=== PATIENT | male | born 1995 | race Caucasian/White ===

== ENCOUNTER 2017-08-31 18:02 | Emergency (ER) | payer MEDICAID, OTHER ==
[~2017-08-31] VITALS: Ht 162.6 cm; Wt 67.0 kg
[2017-08-31 18:10] VITALS: BP 120/75; PULSE 97; RESP 16; TEMP 98.5; O2SAT 98
[2017-08-31 19:18] LABS: BILIRUBIN, URINE NEG (NEG); BLOOD, URINE NEG (NEG); GLUCOSE,URINE NEG (NEG); KETONE, URINE TRACE mg/dL (NEG); MUCUS URINE MANY /lpf (OCC); NITRITE,URINE NEG (NEG); PH, URINE 5.5 (5.0-8.5); SQUAMOUS EPITHELIAL CELL URINE 1 /hpf (0-5); URINE COLOR YELLOW (YELLW/STRAW); URINE LEUKOCYTE ESTERASE NEG (NEG)
[2017-08-31 20:04] VITALS: BP 122/71; PULSE 82; RESP 17; TEMP 98.6; O2SAT 97
[2017-08-31 20:13] LABS: BASOPHIL % 0.4 % (0.0-2.0); EOSINOPHIL % 0.2 % (0.0-4.0); HEMATOCRIT 43.7 % (39.0-51.0); HEMOGLOBIN 15.1 GM/DL (13.0-17.0); LYMPH % 22.8 % (9.0-44.0); LYMPHOCYTE # 2.3 TH/MM3 (1.0-4.8); MEAN CELL VOLUME 94.2 FL (80.0-100.0); MEAN CORPUSCULAR HEMOGLOBIN 32.5 PG (27.0-34.0); MEAN CORPUSCULAR HGB CONC 34.6 % (32.0-36.0); MEAN PLATELET VOLUME 8.4 FL (7.0-11.0); MONO % 7.9 % (0.0-8.0); MONOCYTE # 0.8 TH/MM3 (0-0.9); NEUT % 68.7 % (16.0-70.0); PLATELET COUNT 398 TH/MM3 (150-450); RED BLOOD COUNT 4.64 MIL/MM3 (4.50-5.90); RED CELL DISTRIBUTION WIDTH 13.1 % (11.6-17.2); WHITE BLOOD COUNT 10.1 TH/MM3 (4.0-11.0)
[2017-08-31 20:26] LABS: ALBUMIN 4.2 GM/DL (3.4-5.0); AST (GOT) 36 U/L (15-37); BICARBONATE 25.9 MEQ/L (21.0-32.0); BLOOD UREA NITROGEN 8 MG/DL (7-18); CALCIUM 9.2 MG/DL (8.5-10.1); CHLORIDE 105 MEQ/L (98-107); CREATININE 0.84 MG/DL (0.60-1.30); GLOMERULAR FILTRATION RATE 114 ML/MIN (>89); GLUCOSE,RANDOM 85 MG/DL (74-106); SODIUM (NA) 139 MEQ/L (136-145)
[2017-08-31 20:29] LABS: ALKALINE PHOSPHATASE 92 U/L (45-117); ALT (GPT) 57 U/L (12-78); TOTAL BILIRUBIN ADULT 0.3 MG/DL (0.2-1.0); TOTAL PROTEIN 7.9 GM/DL (6.4-8.2)
--- NOTE | 2017-08-31 20:43 | PD ---
HPI Chief Complaint: Psychiatric Symptoms Time Seen by Provider: 20:20 Travel History International Travel<30 days: No Contact w/Intl Traveler<30days: No Traveled to known affect area: No History of Present Illness HPI 22-year-old male with history of schizophrenia results emergency department for psychiatric evaluation under Bacon act. Patient states that he was hearing voices and they're telling him to kill himself. Patient states he does not want to kill himself. He does report that he is not taking medication at this time. Denies any acute medical needs. Patient has no other symptoms reported this time. PFSH Past Medical History Psychiatric: Yes Social History Alcohol Use: Yes Tobacco Use: Yes Allergies-Medications (Allergen,Severity, Reaction): Coded Allergies: trazodone (Verified Allergy, Unknown, 08/31/17) Review of Systems Except as stated in HPI: all other systems reviewed are Neg Physical Exam Narrative GENERAL: Well-nourished, but seemingly developmentally delayed male patient, lying in bed in no acute distress. SKIN: Focused skin assessment warm/dry. HEAD: Atraumatic. Normocephalic. EYES: Pupils equal and round. No scleral icterus. No injection or drainage. ENT: No nasal bleeding or discharge. Mucous membranes pink and moist. NECK: Trachea midline. No JVD. CARDIOVASCULAR: Regular rate and rhythm. No murmur appreciated. RESPIRATORY: No accessory muscle use. Clear to auscultation. Breath sounds equal bilaterally. GASTROINTESTINAL: Abdomen soft, non-tender, nondistended. Hepatic and splenic margins not palpable. MUSCULOSKELETAL: No obvious deformities. No clubbing. No cyanosis. No edema. NEUROLOGICAL: Awake and alert. No obvious cranial nerve deficits. Motor grossly within normal limits. Normal speech. Data Data Last Documented VS Vital Signs Date Time Temp Pulse Resp B/P (MAP) Pulse Ox O2 Delivery O2 Flow Rate FiO2 08/31/17 22:30 97.2 72 17 106/54 (71) 99 Room Air Orders Orders Complete Blood Count With Diff (08/31/17 18:08) Comprehensive Metabolic Panel (08/31/17 18:08) Urinalysis - C+S If Indicated (08/31/17 18:08) Psych Screen (08/31/17 18:08) Drug Screen, Random Urine (08/31/17 18:08) Alcohol (Ethanol) (08/31/17 18:08) Labs Laboratory Tests Test 08/31/17 18:48 08/31/17 19:21 Urine Color YELLOW Urine Turbidity CLEAR Urine pH 5.5 Urine Specific [place] 1.028 Urine Protein 30 mg/dL Urine Glucose (UA) NEG mg/dL Urine Ketones TRACE mg/dL Urine Occult Blood NEG Urine Nitrite NEG Urine Bilirubin NEG Urine Urobilinogen 2.0 MG/DL Urine Leukocyte Esterase NEG Urine RBC LESS THAN 1 /hpf Urine WBC 1 /hpf Urine Squamous Epithelial Cells 1 /hpf Urine Mucus MANY /lpf Microscopic Urinalysis Comment CULT NOT INDICATED Urine Opiates Screen NEG Urine Barbiturates Screen NEG Urine Amphetamines Screen NEG Urine Benzodiazepines Screen NEG Urine Cocaine Screen NEG Urine Cannabinoids Screen POS White Blood Count 10.1 TH/MM3 Red Blood Count 4.64 MIL/MM3 Hemoglobin 15.1 GM/DL Hematocrit 43.7 % Mean Corpuscular Volume 94.2 FL Mean Corpuscular Hemoglobin 32.5 PG Mean Corpuscular Hemoglobin Concent 34.6 % Red Cell Distribution Width 13.1 % Platelet Count 398 TH/MM3 Mean Platelet Volume 8.4 FL Neutrophils (%) (Auto) 68.7 % Lymphocytes (%) (Auto) 22.8 % Monocytes (%) (Auto) 7.9 % Eosinophils (%) (Auto) 0.2 % Basophils (%) (Auto) 0.4 % Neutrophils # (Auto) 7.0 TH/MM3 Lymphocytes # (Auto) 2.3 TH/MM3 Monocytes # (Auto) 0.8 TH/MM3 Eosinophils # (Auto) 0.0 TH/MM3 Basophils # (Auto) 0.0 TH/MM3 CBC Comment DIFF FINAL Differential Comment Blood Urea Nitrogen 8 MG/DL Creatinine 0.84 MG/DL Random Glucose 85 MG/DL Total Protein 7.9 GM/DL Albumin 4.2 GM/DL Calcium Level 9.2 MG/DL Alkaline Phosphatase 92 U/L Aspartate Amino Transf (AST/SGOT) 36 U/L Alanine Aminotransferase (ALT/SGPT) 57 U/L Total Bilirubin 0.3 MG/DL Sodium Level 139 MEQ/L Potassium Level 3.9 MEQ/L Chloride Level 105 MEQ/L Carbon Dioxide Level 25.9 MEQ/L Anion Gap 8 MEQ/L Estimat Glomerular Filtration Rate 114 ML/MIN Ethyl Alcohol Level LESS THAN 3 MG/DL MDM Medical Decision Making Medical Screen Exam Complete: Yes Emergency Medical Condition: Yes Medical Record Reviewed: Yes Differential Diagnosis Mood disorder versus personality disorder versus adjustment reaction disorder Narrative Course 22-year-old male presents to emergency department under Bacon act for psychiatric evaluation. Patient appears without distress. Vital signs are stable. Laboratory is without acute concern. He is medically cleared to undergo psychiatric screening for further evaluation and disposition. Mental health screening discussed with the patient. Psychiatric screen ordered. Diagnosis Primary Impression: Schizophrenia Qualified Codes: F20.9 - Schizophrenia, unspecified Condition: Stable Jaci Pineda Aug 31, 2017 20:43
[2017-08-31 22:30] VITALS: BP 106/54; PULSE 72; RESP 17; TEMP 97.2; O2SAT 99
[2017-09-01 04:00] VITALS: BP 108/56; PULSE 68; RESP 18; TEMP 98.6; O2SAT 100
[2017-09-01] MEDS ORDERED: NICOTINE 21 MG/24 HR PATCH T-DERMAL ONE (10:45)
[2017-09-01 12:20] VITALS: BP 110/57; PULSE 58; RESP 18; O2SAT 97
[2017-09-01] MEDS ORDERED: PROZ20CA11 PO (13:51)
--- NOTE | 2017-09-01 13:55 | PD ---
History of Present Illness Chief Complaint: Psychiatric Symptoms Time Seen by Provider: 13:45 Travel History International Travel<30 Days: No Contact w/Intl Traveler<30days: No Known affected area: No Legal Status Legal Status: Bacon Act Bacon Act Signed By: Juvenal Rose Bacon Act Comment: 2017 @ 3776 History of Present Illness: 22-year-old male Arleen acted for reports of auditory hallucinations and suicidality. At this time the patient denies any hallucinations and denies any suicidal or homicidal ideation, plan or intent. This physician noted a diagnosis of schizophrenia on his Bacon act, but the patient does not appear to have actual significant objective clinical symptoms of schizophrenia. He does have an obvious speech impediment. He also feels he is transgender. This is not a delusion or psychotic symptoms however. He would like to be back on antidepressant medicine and states he has not been seen by a psychiatrist in over a year. He moved to this area with his mother approximately one year ago. He is verbally dona for safety at this time and he is competent to do so. This physician offered a prescription for Prozac and the patient readily agreed. Informed consent was given. He can follow up on an outpatient basis. PFSH Past Medical History Psychiatric: Yes Psychiatric History Psychiatric History Hx Psychiatric Treatment: DEPRESSION/ ANXIETY, SCHIZOPHRENIA. Patient admits to his history of depressive symptoms and anxiety. He does not demonstrate actual significant objective clinical evidence of schizophrenia at this time History of Inpatient Treatment: No Guns or firearms in home: No Social History Hx Alcohol Use: Yes Hx Tobacco Use: Yes Hx Substance Use: No Substance Use Type: Marijuana Hx of Substance Use Treatment: No Allergies-Medications (Allergen,Severity, Reaction): Coded Allergies: trazodone (Verified Allergy, Unknown, 08/31/17) Reported Meds & Prescriptions Reported Meds & Active Scripts Active Prozac (Fluoxetine HCl) 20 Mg Cap 20 Mg PO DAILY Review of Systems Psychiatric: COMPLAINS OF: Anxiety, Depression Except as stated in HPI: all other systems reviewed are Neg Mental Status Examination Appearance: Appropriate Consciousness: Alert Orientation: x4 Motor Activity: Normal gait Speech: Unremarkable Language: Adequate Fund of Knowledge: Adequate Attention and Concentration: Adequate Memory: Unremarkable Mood: Appropriate Affect: Anxious Thought Process & Associations: Intact Thought Content: Appropriate Hallucination Type: None Delusion Type: None Suicidal Ideation: No Suicidal Plan: No Suicidal Intention: No Homicidal Ideation: No Homicidal Plan: No Homicidal Intention: No Insight: Adequate Judgment: Adequate MDM Medical Decision Making Medical Record Reviewed: Yes Assessment/Plan Patient interviewed at bedside. Electronic medical record reviewed. Case discussed with nurse Danya. Prescription for Prozac given. Bacon act lifted. Patient does not meet criteria for Bacon act or involuntary psychiatric hospitalization. He would like to return home and he is verbally dona for safety. He is competent to do so. Orders Orders Complete Blood Count With Diff (08/31/17 18:08) Comprehensive Metabolic Panel (08/31/17 18:08) Urinalysis - C+S If Indicated (08/31/17 18:08) Psych Screen (08/31/17 18:08) Drug Screen, Random Urine (08/31/17 18:08) Alcohol (Ethanol) (08/31/17 18:08) Diet Regular Basic (09/01/17 Breakfast) Nicotine 21 Mg Patch.24 Hr (Habitrol 21 (09/01/17 10:45) Diet Regular Basic (09/01/17 Lunch) Results Vital Signs Date Time Temp Pulse Resp B/P (MAP) Pulse Ox O2 Delivery O2 Flow Rate FiO2 09/01/17 12:20 58 18 110/57 (74) 97 09/01/17 04:00 98.6 68 18 108/56 (73) 100 Room Air 08/31/17 22:30 97.2 72 17 106/54 (71) 99 Room Air 08/31/17 20:04 98.6 82 17 122/71 (88) 97 Room Air 08/31/17 18:10 98.5 97 16 120/75 (90) 98 Laboratory Tests Test 08/31/17 18:48 08/31/17 19:21 Urine Color YELLOW Urine Turbidity CLEAR Urine pH 5.5 Urine Specific [place] 1.028 Urine Protein 30 Urine Glucose (UA) NEG Urine Ketones TRACE Urine Occult Blood NEG Urine Nitrite NEG Urine Bilirubin NEG Urine Urobilinogen 2.0 Urine Leukocyte Esterase NEG Urine RBC LESS THAN 1 Urine WBC 1 Urine Squamous Epithelial Cells 1 Urine Mucus MANY Microscopic Urinalysis Comment CULT NOT INDICATED Urine Opiates Screen NEG Urine Barbiturates Screen NEG Urine Amphetamines Screen NEG Urine Benzodiazepines Screen NEG Urine Cocaine Screen NEG Urine Cannabinoids Screen POS White Blood Count 10.1 Red Blood Count 4.64 Hemoglobin 15.1 Hematocrit 43.7 Mean Corpuscular Volume 94.2 Mean Corpuscular Hemoglobin 32.5 Mean Corpuscular Hemoglobin Concent 34.6 Red Cell Distribution Width 13.1 Platelet Count 398 Mean Platelet Volume 8.4 Neutrophils (%) (Auto) 68.7 Lymphocytes (%) (Auto) 22.8 Monocytes (%) (Auto) 7.9 Eosinophils (%) (Auto) 0.2 Basophils (%) (Auto) 0.4 Neutrophils # (Auto) 7.0 Lymphocytes # (Auto) 2.3 Monocytes # (Auto) 0.8 Eosinophils # (Auto) 0.0 Basophils # (Auto) 0.0 CBC Comment DIFF FINAL Differential Comment Blood Urea Nitrogen 8 Creatinine 0.84 Random Glucose 85 Total Protein 7.9 Albumin 4.2 Calcium Level 9.2 Alkaline Phosphatase 92 Aspartate Amino Transf (AST/SGOT) 36 Alanine Aminotransferase (ALT/SGPT) 57 Total Bilirubin 0.3 Sodium Level 139 Potassium Level 3.9 Chloride Level 105 Carbon Dioxide Level 25.9 Anion Gap 8 Estimat Glomerular Filtration Rate 114 Ethyl Alcohol Level LESS THAN 3 Diagnosis Primary Impression: Adjustment disorder with anxiety Prescriptions Fluoxetine (Prozac) 20 Mg Cap 20 MG PO DAILY, #30 CAP 0 Refills Prov: Inocente Lackey MD 09/01/17 Condition: Stable Inocente Lackey MD Sep 01, 2017 13:55
--- NOTE | 2017-09-01 14:42 | PD ---
Physical Exam Time Seen by Provider: 14:[address] Lackey has evaluated the patient, lifted Bacon act and cleared the patient for discharge. Data Data Last Documented VS Vital Signs Date Time Temp Pulse Resp B/P (MAP) Pulse Ox O2 Delivery O2 Flow Rate FiO2 09/01/17 12:20 58 18 110/57 (74) 97 09/01/17 04:00 98.6 Room Air Orders Orders Complete Blood Count With Diff (08/31/17 18:08) Comprehensive Metabolic Panel (08/31/17 18:08) Urinalysis - C+S If Indicated (08/31/17 18:08) Psych Screen (08/31/17 18:08) Drug Screen, Random Urine (08/31/17 18:08) Alcohol (Ethanol) (08/31/17 18:08) Diet Regular Basic (09/01/17 Breakfast) Nicotine 21 Mg Patch.24 Hr (Habitrol 21 (09/01/17 10:45) Diet Regular Basic (09/01/17 Lunch) Labs Laboratory Tests Test 08/31/17 18:48 08/31/17 19:21 Urine Color YELLOW Urine Turbidity CLEAR Urine pH 5.5 Urine Specific [place] 1.028 Urine Protein 30 mg/dL Urine Glucose (UA) NEG mg/dL Urine Ketones TRACE mg/dL Urine Occult Blood NEG Urine Nitrite NEG Urine Bilirubin NEG Urine Urobilinogen 2.0 MG/DL Urine Leukocyte Esterase NEG Urine RBC LESS THAN 1 /hpf Urine WBC 1 /hpf Urine Squamous Epithelial Cells 1 /hpf Urine Mucus MANY /lpf Microscopic Urinalysis Comment CULT NOT INDICATED Urine Opiates Screen NEG Urine Barbiturates Screen NEG Urine Amphetamines Screen NEG Urine Benzodiazepines Screen NEG Urine Cocaine Screen NEG Urine Cannabinoids Screen POS White Blood Count 10.1 TH/MM3 Red Blood Count 4.64 MIL/MM3 Hemoglobin 15.1 GM/DL Hematocrit 43.7 % Mean Corpuscular Volume 94.2 FL Mean Corpuscular Hemoglobin 32.5 PG Mean Corpuscular Hemoglobin Concent 34.6 % Red Cell Distribution Width 13.1 % Platelet Count 398 TH/MM3 Mean Platelet Volume 8.4 FL Neutrophils (%) (Auto) 68.7 % Lymphocytes (%) (Auto) 22.8 % Monocytes (%) (Auto) 7.9 % Eosinophils (%) (Auto) 0.2 % Basophils (%) (Auto) 0.4 % Neutrophils # (Auto) 7.0 TH/MM3 Lymphocytes # (Auto) 2.3 TH/MM3 Monocytes # (Auto) 0.8 TH/MM3 Eosinophils # (Auto) 0.0 TH/MM3 Basophils # (Auto) 0.0 TH/MM3 CBC Comment DIFF FINAL Differential Comment Blood Urea Nitrogen 8 MG/DL Creatinine 0.84 MG/DL Random Glucose 85 MG/DL Total Protein 7.9 GM/DL Albumin 4.2 GM/DL Calcium Level 9.2 MG/DL Alkaline Phosphatase 92 U/L Aspartate Amino Transf (AST/SGOT) 36 U/L Alanine Aminotransferase (ALT/SGPT) 57 U/L Total Bilirubin 0.3 MG/DL Sodium Level 139 MEQ/L Potassium Level 3.9 MEQ/L Chloride Level 105 MEQ/L Carbon Dioxide Level 25.9 MEQ/L Anion Gap 8 MEQ/L Estimat Glomerular Filtration Rate 114 ML/MIN Ethyl Alcohol Level LESS THAN 3 MG/DL MDM Supervised Visit with RIGO: No Narrative Course Dr. Lackey has evaluated the patient, lifted [facility] and cleared the patient for discharge. Patient contracts safety. Denies suicidal or homicidal ideations. [facility]. Has friends and family for support. Patient was medically cleared by alternate provider prior to psych screening. Patient has been evaluated by psychiatry and and is now cleared for discharge. Diagnosis Primary Impression: Adjustment disorder with anxiety Referrals: KYLEE (Out patient) [facility] Primary Care Physician Psychiatrist Rachele PICHARDO Behavioral Patient Instructions: Anxiety (ED), General Instructions Additional Instruction: Contract safety to your self and others Follow-up with psychiatry Follow-up with primary care provider Follow-up with Bernardino Billingsley Return to the emergency department immediately with worsening of symptoms Med/Other Pt SpecificInfo: Prescription(s) given Scripts Fluoxetine (Prozac) 20 Mg Cap 20 MG PO DAILY, #30 CAP 0 Refills Prov: Inocente Lackey MD 09/01/17 Disposition: 01 DISCHARGE HOME Condition: Stable KandaceWilfred rogerssue NOVOA Sep 01, 2017 14:42
== END 2017-09-01 15:45 | disposition home or self-care (01) ==
LOC: NED 18:02 → NEPJ 09-01 15:45
DX: F43.22 Adjustment disorder with anxiety (principal); F20.9 Schizophrenia, unspecified; Z72.0 Tobacco use; Z79.899 Other long term (current) drug therapy
CPT/HCPCS: 80053; 80307; 81001; 85025; 99284

== ENCOUNTER 2017-09-03 00:09 | Inpatient (IN) | payer MEDICAID, OTHER ==
[~2017-09-03] VITALS: Ht 165.1 cm; Wt 58.4 kg
[~2017-09-03 00:09] MED LIST: PROZ20CA11 PO
--- NOTE | 2017-09-03 00:44 | PD ---
HPI Chief Complaint: ba Time Seen by Provider: 00:43 Travel History International Travel<30 days: No Contact w/Intl Traveler<30days: No Traveled to known affect area: No History of Present Illness HPI 22-year-old male presents to emergency department under [employer] act for psychiatric evaluation. Patient was seen and evaluated here 2 days ago, medically clear, and has been since disposition. Patient states he has not been taking his medication and is not followed up. He has been having worsening auditory hallucinations, telling him to hurt himself. Patient states he does not want hurt himself that's why he is here. He has no acute medical needs. PFSH Past Medical History Bipolar Disorder: Yes Psychiatric: Yes Social History Alcohol Use: Yes Tobacco Use: Yes Substance Use: No Allergies-Medications (Allergen,Severity, Reaction): Coded Allergies: trazodone (Verified Allergy, Unknown, 09/03/17) Reported Meds & Prescriptions Reported Meds & Active Scripts Active Prozac (Fluoxetine HCl) 20 Mg Cap 20 Mg PO DAILY Review of Systems Except as stated in HPI: all other systems reviewed are Neg Physical Exam Narrative GENERAL: Thin male patient, ambulatory and in no acute distress. SKIN: Focused skin assessment warm/dry. HEAD: Atraumatic. Normocephalic. EYES: Pupils equal and round. No scleral icterus. No injection or drainage. ENT: No nasal bleeding or discharge. Mucous membranes pink and moist. NECK: Trachea midline. No JVD. CARDIOVASCULAR: Regular rate and rhythm. No murmur appreciated. RESPIRATORY: No accessory muscle use. Clear to auscultation. Breath sounds equal bilaterally. GASTROINTESTINAL: Abdomen soft, non-tender, nondistended. Hepatic and splenic margins not palpable. MUSCULOSKELETAL: No obvious deformities. No clubbing. No cyanosis. No edema. NEUROLOGICAL: Awake and alert. No obvious cranial nerve deficits. Motor grossly within normal limits. . Data Data Orders Orders Psych Screen (09/03/17 01:52) Diet Regular Basic (09/03/17 Breakfast) [facility] Medical Decision Making Medical Screen Exam Complete: Yes Emergency Medical Condition: Yes Medical Record Reviewed: Yes Differential Diagnosis Mood disorder versus personality disorder versus adjustment reaction disorder Narrative Course 22-year-old male presents emergency department under [employer] act for psychiatric evaluation. Patient appears without distress. He reports worsening auditory hallucinations and not taking his medication. Patient does report suicidal thoughts but not wanting to hurt himself. Lab work will not be repeated as it was just completed within this week. He is medically cleared at this time to undergo psychiatric screening for further evaluation and disposition. Mental health screening discussed with the patient. Psychiatric screen ordered. Diagnosis Primary Impression: Mood disorder Condition: Stable EdwinJaci BRIGHT Sep 03, 2017 00:44
[2017-09-03 03:18] VITALS: BP 132/69; PULSE 78; RESP 16; O2SAT 95
[2017-09-03 10:31] VITALS: BP 90/52; PULSE 76; RESP 18; O2SAT 98
[2017-09-03] MEDS ORDERED: ACETAMINOPHEN 325 MG TAB PO PRN (17:30)
[2017-09-03] MEDS ORDERED: diphenhydrAMINE HCL 50 MG/ML VIAL IM PRN (17:30)
[2017-09-03] MEDS ORDERED: MAGNESIUM HYDROXIDE SUSP 30 ML CUP PO PRN (17:30)
[2017-09-03] MEDS ORDERED: traZODone HCL 50 MG TAB PO PRN (17:30)
--- NOTE | 2017-09-03 17:37 | HHI.HP ---
Provisional Diagnosis Admission Date [place]. Adjustment disorder with depressed mood Certification of Person's Competence To Provide Express and Informed Consent I have personally examined Bertin Worthy , a person being served at [facility] onSep 03, 2017 17:25. Express and informed consent means consent voluntarily given in writing, by a competent person, after sufficient explanation and disclosure of the subject matter involved to enable the person to make a knowing and willful decision without any element of force, fraud, deceit, duress, or other form of constraint or coercion. This person is 18 years of age or older, is not now known to be incompetent to consent to treatment with a guardian advocate, and does not have a health care surrogate or proxy currently making medical treatment decisions. I have found this person to be one of the following: [X] Competent to provide express and informed consent, as defined above, for voluntary admission to this facility and is competent to provide express and informed consent for treatment. He/she has the consistent capacity to make well reasoned, willful, and knowing decisions concerning his or her medical or mental health treatment. The person fully and consistently understands the purpose of the admission for examination/placement and is fully capable of personally exercising all rights assured [place] Incompetent to provide express and informed consent to voluntary admission, and this is incompetent to provide express and informed consent to treatment. The person must be transferred to involuntary status and a petition for a guardian advocate filed with the Circuit Court. [] Refusing to provide express and informed consent to voluntary admission but is competent to provide express and informed consent for treatment. The person must be discharged or transferred to involuntary status. Form shall be completed within 24 hours of a person's arrival at the receiving facility and filed in the clinical record of each person: 1. Admitted on a voluntary basis 2. Permitted to provide express and informed consent to his/her own treatment 3. Allowed to transfer from involuntary to voluntary status 4. Prior to permitting a person to consent to his or her own treatment after having been previously found incompetent to consent to treatment. History of Present Illness Capacity: Has Capacity HPI 22-year-old male presents under a Bacon act with reports of auditory hallucinations of a command nature, telling him to harm himself. Patient was evaluated by this physician several days ago. He believes he is transgender and has grown his hair long and wants to have hormone therapy and surgery to become a female. He has a significant speech impediment and appears to possibly have a genetic issue underlying his appearance. He has recently returned to this area, where his mother resides. While he complains of command auditory hallucinations, telling him to harm himself, he does not have the remainder of symptoms associated with schizophrenia, schizoaffective disorder, bipolar disorder, etc. The patient's affect is not consistent with schizophrenia and he does not demonstrate poor relatedness. He does not appear to be responding to internal stimuli. Additionally, he does not have a sustained change in mood, which would be associated with bipolar disorder. He does state that his mother will not accept him back into her home as long as he is complaining of auditory hallucinations. The patient was given a prescription for Prozac last time and told he could fill it at [facility] for $4. He has not filled the prescription. On the other hand, the patient describes multiple symptoms of depression subjectively, including depressed mood, anhedonia, social withdrawal, feelings of hopelessness and helplessness, diminished energy, decreased self-esteem, and suicidal ideation. As this is the second time he has returned to this facility for psychiatric evaluation and treatment, this physician does feel he is at high risk for harming himself. Review of Systems Psychiatric: COMPLAINS OF: Mood changes, Suicidal Ideation Except as stated in HPI: all other systems reviewed are Neg Past Psych History Psychological trauma history Unknown (denied). Violence risk - others (6 mos) Minimal to moderate Violence risk - self (6 mos) High Substance Abuse History Drugs/Alcohol past 12 months Denied but the patient was positive for cannabinoids at the time of his last evaluation, August 31, 2017. Past Family Social History Coded Allergies: trazodone (Verified Allergy, Unknown, 09/03/17) Active Scripts Fluoxetine (Prozac) 20 Mg Cap, 20 MG PO DAILY, #30 CAP 0 Refills Prov:Inocente Lackey MD 09/01/17 Current Medications Medications (Trade) Dose Ordered Sig/Darrian Route Start Time Stop Time Status Last Admin (Benadryl) 50 mg Q6H PRN PO 09/03/17 17:30 UNV (Benadryl Inj) 50 mg Q6H PRN IM 09/03/17 17:30 UNV (Tylenol) 650 mg Q4H PRN PO 09/03/17 17:30 UNV (Milk Of Magnesia Liq) 30 ml DAILY PRN PO 09/03/17 17:30 UNV (Mag-Al Plus Susp Liq) 30 ml Q6H PRN PO 09/03/17 17:30 UNV (Desyrel) 50 mg HS PRN PO 09/03/17 17:30 UNV (Atarax) 50 mg Q6H PRN PO 09/03/17 17:30 UNV (PROzac) 20 mg DAILY PO 09/04/17 09:00 UNV Family Psych History Positive for mood disorders. Social History Patient currently homeless. He is not employed. He has no financial backup. He has minimal to no family support. He admits upon further questioning that he does use marijuana at least intermittently. Patient's Strengths (min. 2) Young and has access to healthcare. Physical Exam GENERAL: SKIN: Warm and dry. HEAD: Normocephalic. EYES: No scleral icterus. No injection or drainage. NECK: Supple, trachea midline. No JVD or lymphadenopathy. CARDIOVASCULAR: Regular rate and rhythm without murmurs, gallops, or rubs. RESPIRATORY: Breath sounds equal bilaterally. No accessory muscle use. GASTROINTESTINAL: Abdomen soft, non-tender, nondistended. MUSCULOSKELETAL: No cyanosis, or edema. BACK: Nontender without obvious deformity. No CVA tenderness. Vital Signs Vital Signs Date Time Temp Pulse Resp B/P (MAP) Pulse Ox O2 Delivery O2 Flow Rate FiO2 09/03/17 10:31 76 18 90/52 (65) 98 Room Air Mental Status Examination Appearance: Disheveled Consciousness: Alert Orientation: x4 Motor Activity: Normal gait Speech: Speech impediment Language: Adequate Fund of Knowledge: Adequate Attention and Concentration: Adequate Memory: Unremarkable Mood: Anxious Affect: Anxious Thought Process & Associations: Intact Thought Content: Hallucinations Hallucination Type: Auditory Delusion Type: None Suicidal Ideation: Yes Suicidal Plan: No Suicidal Intention: No Homicidal Ideation: No Homicidal Plan: No Homicidal Intention: No Insight: Fair Judgment: Impulsive Assessment & Plan Problem List: (1) Adjustment disorder with depressed mood ICD Codes: F43.21 - Adjustment disorder with depressed mood Assessment & Plan Estimated LOS: days. 22-year-old male presents under a Bacon act with complaints of auditory hallucinations telling him to harm himself. Patient's mother will not accept him into her home as long as he complains of auditory hallucinations, as reported by the patient. This physician feels the patient is at high risk for self-harm due to the lack of his mother's support, his young age, his significant speech impediment, his financial distress, and his homelessness. He is therefore being admitted for further evaluation and treatment. This physician has ordered a CBC and comprehensive metabolic panel to determine if any infectious process or metabolic process is causing or contributing to the patient's dysphoria. Additionally, this physician has ordered thyroid stimulating hormone level, vitamin B-12 level and vitamin D level, to determine if deficiencies in these areas might be causing or contributing to his mood disorder. This physician is continuing the patient's Prozac for his depressive complaints. The treating physician may decide to provide antipsychotic medication for his complaints of auditory hallucinations. Therefore, this physician has also ordered an EKG to determine the patient's cardiac conduction status which might be adversely affected by multiple psychotropic medicines. This physician spoke to the patient's nurse, Alisha, regarding the patient's recent behavior. Finally, case management will also be involved to assist with information gathering and disposition planning. Inocente Lackey MD Sep 03, 2017 17:37
[2017-09-03 20:05] VITALS: BP 112/69; PULSE 65; RESP 20; TEMP 97.9; O2SAT 98
[2017-09-03] MEDS: diphenhydrAMINE HCL 50 MG CAP PO PRN (21:50)
[2017-09-04 05:49] VITALS: BP 102/51; PULSE 85; RESP 18; TEMP 97.8; O2SAT 98
[2017-09-04] MEDS: FLUoxetine HCL 20 MG CAP PO SCH (08:17)
[2017-09-04 09:19] LABS: AUTOMATED NEUTROPHIL # 3.2 TH/MM3 (1.8-7.7); BASOPHIL # 0.1 TH/MM3 (0-0.2); BASOPHIL % 0.8 % (0.0-2.0); EOSINOPHIL # 0.1 TH/MM3 (0-0.4); HEMATOCRIT 43.6 % (39.0-51.0); HEMOGLOBIN 15.2 GM/DL (13.0-17.0); LYMPH % 46.6 % (9.0-44.0); LYMPHOCYTE # 3.5 TH/MM3 (1.0-4.8); MEAN CELL VOLUME 94.8 FL (80.0-100.0); MEAN CORPUSCULAR HGB CONC 34.8 % (32.0-36.0); MEAN PLATELET VOLUME 9.2 FL (7.0-11.0); MONO % 8.5 % (0.0-8.0); MONOCYTE # 0.6 TH/MM3 (0-0.9); NEUT % 43.1 % (16.0-70.0); PLATELET COUNT 398 TH/MM3 (150-450); RED CELL DISTRIBUTION WIDTH 13.1 % (11.6-17.2); WHITE BLOOD COUNT 7.4 TH/MM3 (4.0-11.0)
[2017-09-04 09:46] LABS: AST (GOT) 21 U/L (15-37); BICARBONATE 24.7 MEQ/L (21.0-32.0); BLOOD UREA NITROGEN 13 MG/DL (7-18); CALCIUM 9.3 MG/DL (8.5-10.1); CHLORIDE 103 MEQ/L (98-107); GLOMERULAR FILTRATION RATE 93 ML/MIN (>89); GLUCOSE,RANDOM 120 MG/DL (74-106); SODIUM (NA) 137 MEQ/L (136-145)
[2017-09-04 09:47] LABS: CHOLESTEROL 154 MG/DL (120-200); TRIGLYCERIDES 95 MG/DL (42-150)
[2017-09-04 10:19] LABS: ALKALINE PHOSPHATASE 85 U/L (45-117); ALT (GPT) 48 U/L (12-78); CHOLESTEROL/ HDL RATIO 4.42 RATIO; HDL CHOLESTEROL 34.8 MG/DL (40.0-60.0); LDL CHOLESTEROL 100 MG/DL (0-99); TOTAL BILIRUBIN ADULT 0.4 MG/DL (0.2-1.0); TOTAL PROTEIN 7.5 GM/DL (6.4-8.2)
--- NOTE | 2017-09-04 14:02 | EKG ---
Date Performed: 09/04/2017 Time Performed: 09:06:39 PTAGE: 22 years EKG: SINUS BRADYCARDIA WITH SINUS ARRHYTHMIA BORDERLINE ECG NO PREVIOUS TRACING DOCTOR: Rudy Carpenter Interpretating Date/Time 09/04/2017 14:00:53
--- NOTE | 2017-09-04 14:08 | HHI.PYPN ---
Subjective Chief Complaint: Auditory hallucinations Remarks Patient seen and examined with nurse. Chart reviewed. Case discussed with nursing staff and in treatment team. Reviewing the chart, I note patient was seen in consultation by Dr. Lackey on 09/01 in the ED. Patient was discharged with a script for Prozac, which he apparently did not fill. Patient returned to the ED yesterday under a Bacon Act and was admitted to the unit by Dr. Lackey. On my examination today, patient complains of deprecatory and command auditory hallucinations to self-injure for several months. Patient complains of some low mood and anxiety. Patient denies any SI/HI at this time. Patient denies side effects from medications. Patient has no physical complaints. Patient would like to focus treatment chiefly on the voices. Review of Systems Except as stated in HPI: all other systems reviewed are Neg Mental Status Examination Appearance: Disheveled, Other (maintaining basic hygiene) Consciousness: Alert Orientation: x4 Motor Activity: Normal gait Speech: Speech impediment Language: Adequate Fund of Knowledge: Adequate Attention and Concentration: Adequate Memory: Unremarkable Mood: Sad, Anxious Affect: Blunt Thought Process & Associations: Intact, Logical, Linear Thought Content: Hallucinations Hallucination Type: Auditory (complains of deprecatory and CAH as noted above but does not appear internally stimulated.) Delusion Type: None Suicidal Ideation: No Suicidal Plan: No Suicidal Intention: No Homicidal Ideation: No Homicidal Plan: No Homicidal Intention: No Insight: Fair Judgment: Impulsive Results Labs Item Value Date Time White Blood Count 7.4 TH/MM3 09/04/17 0810 Hemoglobin 15.2 GM/DL 09/04/17 0810 Platelet Count 398 TH/MM3 09/04/17 0810 Sodium Level 137 MEQ/L 09/04/17 0810 Potassium Level 3.6 MEQ/L 09/04/17 0810 Chloride Level 103 MEQ/L 09/04/17 0810 Carbon Dioxide Level 24.7 MEQ/L 09/04/17 0810 Anion Gap 9 MEQ/L 09/04/17 0810 Blood Urea Nitrogen 13 MG/DL 09/04/17 0810 Creatinine 1.00 MG/DL 09/04/17 0810 Estimat Glomerular Filtration Rate 93 ML/MIN 09/04/17 0810 Random Glucose 120 MG/DL H 09/04/17 0810 Aspartate Amino Transf (AST/SGOT) 21 U/L 09/04/17 0810 Alanine Aminotransferase (ALT/SGPT) 48 U/L 09/04/17 0810 Alkaline Phosphatase 85 U/L 09/04/17 0810 Vitamin B12 Level 460 PG/ML 09/04/17 0810 25-Hydroxy Vitamin D Total 37.0 ng/ML 09/04/17 0810 Thyroid Stimulating Hormone 3rd Gen 0.405 uIU/ML 09/04/17 0810 Labs reviewed. UTox on 08/31 was positive for cannabinoids. EKG read as sinus bradycardia with QTcH 396ms, not prolonged. Vitals/IOs Vital Signs Date Time Temp Pulse Resp B/P (MAP) Pulse Ox O2 Delivery O2 Flow Rate FiO2 09/04/17 05:49 97.8 85 18 102/51 (68) 98 09/03/17 10:31 Room Air Assessment & Plan Problem List: (1) Adjustment disorder with mixed anxiety and depressed mood ICD Codes: F43.23 - Adjustment disorder with mixed anxiety and depressed mood (2) Auditory hallucinations ICD Codes: R44.0 - Auditory hallucinations (3) Use of cannabis ICD Codes: F12.90 - Cannabis use, unspecified, uncomplicated Assessment & Plan Ddx for presenting AH includes but is not limited to: primary psychotic illness (although as pointed out by Dr. Lackey, patient does not have associated symptoms one might expect for such an illness), mood disorder with psychotic features (although mood symptoms do not seem as severe as would usually be seen in this case), drug-induced psychotic symptoms, symptom exaggeration although secondary gain is unclear. Psychosis due to GMC seems less likely, and there are no lab findings to suggest an obvious cause. As patient would like to make AH main focus of treatment, we discuss R/B/A of trial of Zyprexa, and patient is agreeable to starting this agent. I will initiate this at low dose, Zyprexa 2.5mg qHS, as BP is already on the low side and I do not want to cause excessive hypotension. We can titrate to effect so long as this agent is well tolerated. I will continue the Prozac for mood/anxiety. Continue to monitor on an inpatient unit. Continue other medications and care as ordered. Patient may sign voluntary and consent for medications. Justification for Cont. Inpt. Monitoring for impairment and safety. Medication changes. Risk for decompensation in less restrictive environment. Discharge Planning Pending psychiatric stabilization. Case discussed with counselor who will endeavor to obtain collateral information. Request HC Surrog/Guard Advoc?: No Tristen Lindsey MD Sep 04, 2017 14:08
[2017-09-04 15:43] LABS: HEMOGLOBIN A1C 5.5 % (4.3-6.0)
[2017-09-04 18:00] VITALS: BP 106/60; PULSE 56; RESP 18; TEMP 98.7; O2SAT 98
[2017-09-04] MEDS: hydrOXYzine HCL 50 MG TAB PO PRN (20:05)
[2017-09-04] MEDS ORDERED: OLANZapine 2.5 MG TAB PO SCH (21:00)
[2017-09-05 05:44] VITALS: BP 108/56; PULSE 65; RESP 18; TEMP 97.2
[2017-09-05] MEDS: hydrOXYzine HCL 50 MG TAB PO PRN ×3 (08:55→20:33)
[2017-09-05] MEDS: FLUoxetine HCL 20 MG CAP PO SCH (08:55)
--- NOTE | 2017-09-05 11:55 | HHI.PYPN ---
Subjective Chief Complaint: Auditory hallucinations Remarks Patient seen and examined with counselor. Chart reviewed. Case discussed with nursing staff and with counselor. On my examination today, the patient reports that auditory hallucinations are decreasing in intensity with Zyprexa. Patient is tolerating this agent well without side effects. No SI or HI. Continues to complain of some anxiety. Sleeping and eating well. No side effects from medications. No physical complaints. Agreeable to titration of Zyprexa today. Review of Systems Except as stated in HPI: all other systems reviewed are Neg Mental Status Examination Appearance: Appropriate Consciousness: Alert Orientation: x4 Motor Activity: Other (no motoric abnormalities noted) Speech: Speech impediment Language: Adequate Fund of Knowledge: Adequate Attention and Concentration: Adequate Memory: Unremarkable Mood: Anxious Affect: Blunt Thought Process & Associations: Intact, Logical, Linear Thought Content: Hallucinations Hallucination Type: Auditory (decreasing in intensity) Delusion Type: None Suicidal Ideation: No Suicidal Plan: No Suicidal Intention: No Homicidal Ideation: No Homicidal Plan: No Homicidal Intention: No Insight: Fair Judgment: Impulsive Results Labs Labs reviewed. Vitals/IOs Vital Signs Date Time Temp Pulse Resp B/P (MAP) Pulse Ox O2 Delivery O2 Flow Rate FiO2 09/05/17 05:44 97.2 65 18 108/56 (73) 09/04/17 18:00 98 09/03/17 10:31 Room Air Assessment & Plan Problem List: (1) Adjustment disorder with mixed anxiety and depressed mood ICD Codes: F43.23 - Adjustment disorder with mixed anxiety and depressed mood (2) Auditory hallucinations ICD Codes: R44.0 - Auditory hallucinations (3) Use of cannabis ICD Codes: F12.90 - Cannabis use, unspecified, uncomplicated Assessment & Plan Titrate Zyprexa to 5 mg at bedtime to target residual auditory hallucinations. Continue Prozac as ordered for mood/anxiety. Continue to monitor on the inpatient unit. Continue other medications and care as ordered. Justification for Cont. Inpt. Medication changes. Auditory hallucinations. Risk for decompensation and less restrictive environment. Discharge Planning Pending psychiatric stabilization Request HC Surrog/Guard Advoc?: No Tristen Lindsey MD Sep 05, 2017 11:55
[2017-09-05] MEDS: NICOTINE 21 MG/24 HR PATCH T-DERMAL SCH (15:00)
[2017-09-05 16:49] VITALS: BP 120/73; PULSE 67; RESP 18; TEMP 97.9; O2SAT 100
[2017-09-05] MEDS: diphenhydrAMINE HCL 50 MG CAP PO PRN (20:33)
[2017-09-05] MEDS ORDERED: OLANZapine 2.5 MG TAB PO SCH (21:00)
[2017-09-06 06:04] VITALS: BP 114/55; PULSE 65; RESP 18; TEMP 97.6; O2SAT 97
[2017-09-06] MEDS: FLUoxetine HCL 20 MG CAP PO SCH (08:31)
[2017-09-06] MEDS: hydrOXYzine HCL 50 MG TAB PO PRN ×2 (08:31→17:15)
[2017-09-06] MEDS: NICOTINE 21 MG/24 HR PATCH T-DERMAL SCH (08:31)
[2017-09-06] MEDS: REMOVE OLD PATCH T-DERMAL SCH (08:34)
--- NOTE | 2017-09-06 14:58 | HHI.PYPN ---
Subjective Chief Complaint: Auditory hallucinations Remarks Patient seen in coverage for Dr. Lindsey. Patient seen in his room with nurse Ariana, chart reviewed, patient compliant medications. Patient vigilant guarded distracted acknowledging auditory hallucinations of a command nature. Telling him to harm himself will increase Zyprexa to 5 mg a.m. 10 mg at bedtime Review of Systems Constitutional: DENIES: Diaphoretic episodes, Fatigue, Fever, Weight gain, Weight loss, Chills, Dizziness, Change in appetite, Night Sweats Endocrine: DENIES: Heat/cold intolerance, Polydipsia, Polyuria, Polyphagia Eyes: DENIES: Blurred vision, Diplopia, Eye inflammation, Eye pain, Vision loss , Photosensitivity, Double Vision Ears, nose, mouth, throat: DENIES: Tinnitus, Hearing loss, Vertigo, Nasal discharge, Oral lesions, Throat pain, Hoarseness, Ear Pain, Running Nose, Epistaxis, Sinus Pain, Toothache, Odynophagia Respiratory: DENIES: Apneas, Cough, Snoring, Wheezing, Hemoptysis, Sputum production, Shortness of breath Cardiovascular: DENIES: Chest pain, Palpitations, Syncope, Dyspnea on Exertion , PND, Lower Extremity Edema, Orthopnea, Claudication Gastrointestinal: DENIES: Abdominal pain, Black stools, Bloody stools, Constipation, Diarrhea, Nausea, Vomiting, Difficulty Swallowing, Anorexia Genitourinary: DENIES: Sexual dysfunction, Urinary frequency, Urinary incontinence, Urgency, Hematuria, Dysuria, Nocturia, Penile Discharge, Testicular Pain, Testicular Swelling Musculoskeletal: DENIES: Joint pain, Muscle aches, Stiffness, Joint Swelling, Back pain, Neck pain Integumentary: DENIES: Abnormal pigmentation, Nail changes, Pruritus, Rash Hematologic/lymphatic: DENIES: Bruising, Lymphadenopathy Immunologic/allergic: DENIES: Eczema, Urticaria Neurologic: DENIES: Abnormal gait, Headache, Localized weakness, Paresthesias, Seizures, Speech Problems, Tremor, Poor Balance Psychiatric: COMPLAINS OF: Anxiety, Depression, Hallucinations Mental Status Examination Appearance: Appropriate Consciousness: Alert Orientation: x4 Motor Activity: Other (no motoric abnormalities noted) Speech: Speech impediment Language: Adequate Fund of Knowledge: Adequate Attention and Concentration: Adequate Memory: Unremarkable Mood: Anxious Affect: Blunt Thought Process & Associations: Intact, Logical, Linear Thought Content: Hallucinations Hallucination Type: Auditory (decreasing in intensity) Delusion Type: None Suicidal Ideation: No Suicidal Plan: No Suicidal Intention: No Homicidal Ideation: No Homicidal Plan: No Homicidal Intention: No Insight: Fair Judgment: Impulsive Results Labs Test 09/06/17 08:10 Urine Opiates Screen NEG Urine Barbiturates Screen NEG Urine Amphetamines Screen NEG Urine Benzodiazepines Screen NEG Urine Cocaine Screen NEG Urine Cannabinoids Screen POS Vitals/IOs Vital Signs Date Time Temp Pulse Resp B/P (MAP) Pulse Ox O2 Delivery O2 Flow Rate FiO2 09/06/17 06:04 97.6 65 18 114/55 (74) 97 09/03/17 10:31 Room Air Assessment & Plan Problem List: (1) Adjustment disorder with mixed anxiety and depressed mood ICD Codes: F43.23 - Adjustment disorder with mixed anxiety and depressed mood (2) Auditory hallucinations ICD Codes: R44.0 - Auditory hallucinations (3) Use of cannabis ICD Codes: F12.90 - Cannabis use, unspecified, uncomplicated Assessment & Plan Estimated LOS: days patient continues depressed and psychotic with command auditory hallucinations. Please see medication adjustment above Justification for Cont. Inpt. At this time patient will decompensate and placed in a lower level of care Discharge Planning Possibly return to family home Request HC Surrog/Guard Advoc?: No Casey Guerrero MD Sep 06, 2017 14:58
[2017-09-06 17:55] VITALS: BP 104/58; PULSE 83; RESP 18; TEMP 96.8; O2SAT 98
[2017-09-06] MEDS ORDERED: OLANZapine 10 MG TAB PO SCH (21:00)
[2017-09-06] MEDS: diphenhydrAMINE HCL 50 MG CAP PO PRN (21:02)
[2017-09-07 05:41] VITALS: BP 108/58; PULSE 68; RESP 18; TEMP 97.8; O2SAT 97
[2017-09-07] MEDS: FLUoxetine HCL 20 MG CAP PO SCH (07:55)
[2017-09-07] MEDS: NICOTINE 21 MG/24 HR PATCH T-DERMAL SCH (07:56)
[2017-09-07] MEDS: hydrOXYzine HCL 50 MG TAB PO PRN ×3 (08:22→23:52)
[2017-09-07] MEDS: REMOVE OLD PATCH T-DERMAL SCH (08:23)
[2017-09-07] MEDS ORDERED: OLANZapine 5 MG TAB PO SCH (09:00)
[2017-09-07] MEDS: ALUMINUM/MAGNESIUM/SIMETH 30 ML CUP PO PRN (13:04)
--- NOTE | 2017-09-07 15:55 | HHI.PYPN ---
Subjective Chief Complaint: Auditory hallucinations Remarks Patient seen in his room with nurse Kateryna chart review, patient compliant medications. And anxiety. There is able to contract to do no harm. Will increase Zyprexa to 10 mg a.m. 15 mg at bedtime, patient continues to complain of auditory hallucinations Review of Systems Except as stated in HPI: all other systems reviewed are Neg Mental Status Examination Appearance: Appropriate Consciousness: Alert Orientation: x4 Motor Activity: Other (no motoric abnormalities noted) Speech: Speech impediment Language: Adequate Fund of Knowledge: Adequate Attention and Concentration: Adequate Memory: Unremarkable Mood: Anxious Affect: Blunt Thought Process & Associations: Intact, Logical, Linear Thought Content: Hallucinations Hallucination Type: Auditory (decreasing in intensity) Delusion Type: None Suicidal Ideation: No Suicidal Plan: No Suicidal Intention: No Homicidal Ideation: No Homicidal Plan: No Homicidal Intention: No Insight: Fair Judgment: Impulsive Results Vitals/IOs Vital Signs Date Time Temp Pulse Resp B/P (MAP) Pulse Ox O2 Delivery O2 Flow Rate FiO2 09/07/17 05:41 97.8 68 18 108/58 (75) 97 09/03/17 10:31 Room Air Assessment & Plan Problem List: (1) Adjustment disorder with mixed anxiety and depressed mood ICD Codes: F43.23 - Adjustment disorder with mixed anxiety and depressed mood (2) Auditory hallucinations ICD Codes: R44.0 - Auditory hallucinations (3) Use of cannabis ICD Codes: F12.90 - Cannabis use, unspecified, uncomplicated Assessment & Plan Estimated LOS: days patient continue psychotic depressed and somewhat anxious. Please medication adjustments above Justification for Cont. Inpt. At this time patient will decompensate of placed on the lower level of care Discharge Planning This needs to be determined unknown at this time Request HC Surrog/Guard Advoc?: No Casey Guerrero MD Sep 07, 2017 15:55
[2017-09-07 17:06] VITALS: BP 110/62; PULSE 72; RESP 17; TEMP 97.9; O2SAT 98
[2017-09-08 06:19] VITALS: BP 114/63; PULSE 60; RESP 16; TEMP 97.3; O2SAT 96
[2017-09-08] MEDS: NICOTINE 21 MG/24 HR PATCH T-DERMAL SCH (08:03)
[2017-09-08] MEDS: FLUoxetine HCL 20 MG CAP PO SCH (08:03)
[2017-09-08] MEDS: hydrOXYzine HCL 50 MG TAB PO PRN ×3 (08:03→21:31)
[2017-09-08] MEDS: OLANZapine 10 MG TAB PO SCH (08:03)
[2017-09-08] MEDS: REMOVE OLD PATCH T-DERMAL SCH (08:04)
--- NOTE | 2017-09-08 13:13 | HHI.PYPN ---
Subjective Chief Complaint: Auditory hallucinations Remarks Pt seen and discussed with staff. He has been cooperative with medications and denies medication side effects. Olanzapine was increased yesterday due to continued reporting of AH. Pt reports AH decreased today and he doesnt feel urges to act on them anymore. He c/o of anxiety and has been utilizing attarax. No SI/HI. No agitation or aggression. Mental Status Examination Appearance: Appropriate Consciousness: Alert Orientation: x4 Motor Activity: Other (no motoric abnormalities noted) Speech: Speech impediment Language: Adequate Fund of Knowledge: Adequate Attention and Concentration: Adequate Memory: Unremarkable Mood: Anxious Affect: Blunt Thought Process & Associations: Intact, Logical, Linear Thought Content: Hallucinations Hallucination Type: Auditory (decreased) Delusion Type: None Suicidal Ideation: No Suicidal Plan: No Suicidal Intention: No Homicidal Ideation: No Homicidal Plan: No Homicidal Intention: No Insight: Fair Judgment: Impulsive Results Vitals/IOs Vital Signs Date Time Temp Pulse Resp B/P (MAP) Pulse Ox O2 Delivery O2 Flow Rate FiO2 09/08/17 06:19 97.3 60 16 114/63 (80) 96 Assessment & Plan Problem List: (1) Adjustment disorder with mixed anxiety and depressed mood ICD Codes: F43.23 - Adjustment disorder with mixed anxiety and depressed mood (2) Auditory hallucinations ICD Codes: R44.0 - Auditory hallucinations (3) Use of cannabis ICD Codes: F12.90 - Cannabis use, unspecified, uncomplicated Assessment & Plan Pt improving. Continue current tx plan. Estimated LOS: days Justification for Cont. Inpt. risk of decompensation Request HC Surrog/Guard Advoc?: Ana Paula Dimas MD Sep 08, 2017 13:13
[2017-09-08 17:10] VITALS: BP 109/57; PULSE 90; RESP 18; TEMP 96.7; O2SAT 98
[2017-09-08] MEDS: diphenhydrAMINE HCL 50 MG CAP PO PRN (20:17)
[2017-09-09] MEDS: OLANZapine 10 MG TAB PO SCH (08:00)
[2017-09-09] MEDS: FLUoxetine HCL 20 MG CAP PO SCH (08:00)
[2017-09-09] MEDS: hydrOXYzine HCL 50 MG TAB PO PRN ×3 (08:04→21:53)
[2017-09-09] MEDS: REMOVE OLD PATCH T-DERMAL SCH (09:00)
[2017-09-09] MEDS: NICOTINE 21 MG/24 HR PATCH T-DERMAL SCH (09:00)
--- NOTE | 2017-09-09 11:49 | HHI.PYPN ---
Subjective Chief Complaint: Auditory hallucinations Remarks Pt seen and discussed with staff. He reports that he has not had any AH today and mood is much better. No SI/HI. Compliant with medications and denies side effects. No agitation or behavioral problems. He is looking forward to visit with mother today. Mental Status Examination Appearance: Appropriate Consciousness: Alert Orientation: x4 Motor Activity: Other (no motoric abnormalities noted) Speech: Speech impediment Language: Adequate Fund of Knowledge: Adequate Attention and Concentration: Adequate Memory: Unremarkable Mood: Anxious Affect: Blunt Thought Process & Associations: Linear Hallucination Type: None Delusion Type: None Suicidal Ideation: No Suicidal Plan: No Suicidal Intention: No Homicidal Ideation: No Homicidal Plan: No Homicidal Intention: No Insight: Fair Judgment: Impulsive Results Vitals/IOs Vital Signs Date Time Temp Pulse Resp B/P (MAP) Pulse Ox O2 Delivery O2 Flow Rate FiO2 09/08/17 17:10 96.7 90 18 109/57 (74) 98 Assessment & Plan Problem List: (1) Adjustment disorder with mixed anxiety and depressed mood ICD Codes: F43.23 - Adjustment disorder with mixed anxiety and depressed mood (2) Auditory hallucinations ICD Codes: R44.0 - Auditory hallucinations (3) Use of cannabis ICD Codes: F12.90 - Cannabis use, unspecified, uncomplicated Assessment & Plan Pt is improving. Continue current tx plan. Continue discharge planning. Estimated LOS: days Justification for Cont. Inpt. risk of decompensation Request HC Surrog/Guard Advoc?: Ana Paula Dimas MD Sep 09, 2017 11:49
[2017-09-09 17:46] VITALS: BP 138/79; PULSE 80; RESP 16; TEMP 98.2; O2SAT 98
[2017-09-09] MEDS: diphenhydrAMINE HCL 50 MG CAP PO PRN (21:53)
[2017-09-10 06:11] VITALS: BP 113/75; PULSE 88; RESP 18; TEMP 97; O2SAT 98
[2017-09-10] MEDS: FLUoxetine HCL 20 MG CAP PO SCH (09:07)
[2017-09-10] MEDS: NICOTINE 21 MG/24 HR PATCH T-DERMAL SCH (09:07)
[2017-09-10] MEDS: REMOVE OLD PATCH T-DERMAL SCH (09:07)
[2017-09-10] MEDS: OLANZapine 10 MG TAB PO SCH (09:07)
[2017-09-10] MEDS: ALUMINUM/MAGNESIUM/SIMETH 30 ML CUP PO PRN (10:00)
[2017-09-10] MEDS ORDERED: OLAN15TA PO (12:55)
[2017-09-10] MEDS ORDERED: OLAN10TA PO (12:55)
[2017-09-10] MEDS ORDERED: PROZ20CA11 PO (12:55)
--- NOTE | 2017-09-10 13:02 | HHI.DS ---
Psychiatry Discharge Summary Inpatient Psychiatric care?: Yes Advance Directive: No Reason Not Provided: NONE Mental Health AdvanceDirective: No Health Care Proxy: No Admission Admission Date Sep 03, 2017 at 17:23 Admission Diagnosis: (1) Adjustment disorder with mixed anxiety and depressed mood ICD Code: F43.23 - Adjustment disorder with mixed anxiety and depressed mood (2) Auditory hallucinations ICD Code: R44.0 - Auditory hallucinations Brief History 22-year-old male presents under a Bacon act with reports of auditory hallucinations of a command nature, telling him to harm himself. Patient was evaluated by this physician several days ago. He believes he is transgender and has grown his hair long and wants to have hormone therapy and surgery to become a female. He has a significant speech impediment and appears to possibly have a genetic issue underlying his appearance. He has recently returned to this area, where his mother resides. While he complains of command auditory hallucinations, telling him to harm himself, he does not have the remainder of symptoms associated with schizophrenia, schizoaffective disorder, bipolar disorder, etc. The patient's affect is not consistent with schizophrenia and he does not demonstrate poor relatedness. He does not appear to be responding to internal stimuli. Additionally, he does not have a sustained change in mood, which would be associated with bipolar disorder. He does state that his mother will not accept him back into her home as long as he is complaining of auditory hallucinations. The patient was given a prescription for Prozac last time and told he could fill it at [facility] for $4. He has not filled the prescription. On the other hand, the patient describes multiple symptoms of depression subjectively, including depressed mood, anhedonia, social withdrawal, feelings of hopelessness and helplessness, diminished energy, decreased self-esteem, and suicidal ideation. As this is the second time he has returned to this facility for psychiatric evaluation and treatment, this physician does feel he is at high risk for harming himself. Tobacco Use In Past 30 Days: 5 or More Cigarettes/Day Alcohol Use: Never Hospital Course Patient is also course was somewhat uneventful remain somewhat secluded to his room. Though there is no behavioral issues. His compliant with his medications. The auditory hallucinations gradually resolved. His mood did improve. His had good communication with his mother. At this time he denies suicidality homicidality voices or visions. At this time I feel it reached maximum benefit of this hospitalization wishes discharged today. Patient discharged today Rx 1 month the follow-up [facility] act Results Blood Pressure 113 / 75 Vital Signs Date Time Temp Pulse Resp B/P (MAP) Pulse Ox O2 Delivery O2 Flow Rate FiO2 09/10/17 06:11 97.0 88 18 113/75 (88) 98 Laboratory Results Test 09/04/17 08:10 Cholesterol Level 154 MG/DL (120-200) HDL Cholesterol 34.8 MG/DL (40.0-60.0) Hemoglobin A1c 5.5 % (4.3-6.0) LDL Cholesterol 100 MG/DL (0-99) Triglycerides Level 95 MG/DL (42-150) Summary of Procedures None done Pending results at discharge: No Medications # of Antipsychotic meds at D/C: 1 Approp Antipsych med options 1 - Minimum of three failed multiple trials of monotherapy. 2 - Documented plan to taper to monotherapy due to previous use of multiple meds OR cross-taper in progress at D/C. 3 - Documentation of augmentation of Clozapine. 4 - Justification other than those listed in allowable values 1-3, document here : Discharge Discharge Date: Sep 10, 2017 Discharge Diagnosis: (1) Auditory hallucinations Diagnosis: Principal ICD Code: R44.0 - Auditory hallucinations (2) Adjustment disorder with mixed anxiety and depressed mood Diagnosis: Principal ICD Code: F43.23 - Adjustment disorder with mixed anxiety and depressed mood Pt Condition on Discharge: Stable Discharge Disposition: Discharge Home Discharge Instructions Diet Instructions: As Tolerated, No Restrictions Activities you can perform: Regular-No Restrictions Scheduled Appointment: [facility] Act Discharge Time > 30 minutes Mental Status Examination Appearance: Appropriate Consciousness: Alert Orientation: x4 Motor Activity: Other (no motoric abnormalities noted) Speech: Speech impediment Language: Adequate Fund of Knowledge: Adequate Attention and Concentration: Adequate Memory: Unremarkable Mood: Anxious Affect: Blunt Thought Process & Associations: Linear Hallucination Type: None Delusion Type: None Suicidal Ideation: No Suicidal Plan: No Suicidal Intention: No Homicidal Ideation: No Homicidal Plan: No Homicidal Intention: No Insight: Fair Judgment: Impulsive Discharge/Advance Care Plan Health Problems: (1) Adjustment disorder with mixed anxiety and depressed mood (2) Auditory hallucinations (3) Use of cannabis Goals to promote your health * To prevent worsening of your condition and complications * To maintain your health at the optimal level Directions to meet your goals Take your medications as prescribed Follow your dietary instruction Follow activity as directed Keep your appointments as scheduled Take your immunizations and boosters as scheduled If your symptoms worsen call your PCP, if no PCP go to Urgent Care Center or Emergency Room For 19/03 questions related to your inpatient stay or results of tests pending at discharge, please contact Dr. Casey Guerrero at Smoking is Dangerous to Your Health. Avoid second hand smoking Casey Guerrero MD Sep 10, 2017 13:02
== END 2017-09-10 14:50 | disposition home or self-care (01) | DRG 882 ==
LOC: NEPD 00:09 → NEDA 17:23 → H270 20:09
PROVIDERS: ADMIT Psychiatry & Neurology Psychiatry; ATTEND Psychiatry & Neurology Psychiatry
DX: F43.23 Adjustment disorder with mixed anxiety and depressed mood (principal); R45.851 Suicidal ideations; Z59.0 Homelessness; F12.90 Cannabis use, unspecified, uncomplicated; F17.210 Nicotine dependence, cigarettes, uncomplicated; F64.9 Gender identity disorder, unspecified
CPT/HCPCS: 80053; 80061; 80307; 82306; 82607; 83036; 84443; 85025; 93005; 99285; Q0163

== ENCOUNTER 2017-10-07 21:16 | Emergency (ER) | payer MEDICAID, OTHER ==
[~2017-10-07] VITALS: Ht 160 cm; Wt 60.0 kg
[~2017-10-07 21:16] MED LIST changes: +OLAN10TA PO; +OLAN15TA PO
[2017-10-07 21:50] VITALS: BP 125/66; PULSE 56; RESP 16; TEMP 98.7; O2SAT 97
[2017-10-07] MEDS ORDERED: SODIUM CHLOR 0.9% 1000 ML INJ 1,000 ML IV ONE (22:15)
[2017-10-07 22:25] LABS: AUTOMATED NEUTROPHIL # 5.5 TH/MM3 (1.8-7.7); BASOPHIL % 0.3 % (0.0-2.0); EOSINOPHIL # 0.1 TH/MM3 (0-0.4); EOSINOPHIL % 0.6 % (0.0-4.0); HEMATOCRIT 45.1 % (39.0-51.0); HEMOGLOBIN 15.7 GM/DL (13.0-17.0); LYMPH % 31.5 % (9.0-44.0); LYMPHOCYTE # 2.9 TH/MM3 (1.0-4.8); MEAN CELL VOLUME 93.7 FL (80.0-100.0); MEAN CORPUSCULAR HEMOGLOBIN 32.7 PG (27.0-34.0); MEAN CORPUSCULAR HGB CONC 34.9 % (32.0-36.0); MEAN PLATELET VOLUME 7.5 FL (7.0-11.0); MONO % 8.8 % (0.0-8.0); MONOCYTE # 0.8 TH/MM3 (0-0.9); NEUT % 58.8 % (16.0-70.0); PLATELET COUNT 486 TH/MM3 (150-450); RED BLOOD COUNT 4.81 MIL/MM3 (4.50-5.90); RED CELL DISTRIBUTION WIDTH 13.6 % (11.6-17.2); WHITE BLOOD COUNT 9.3 TH/MM3 (4.0-11.0)
--- NOTE | 2017-10-07 22:28 | PD ---
HPI Chief Complaint: OD/ Ingestion Time Seen by Provider: 21:54 Travel History International Travel<30 days: No Contact w/Intl Traveler<30days: No Traveled to known affect area: No History of Present Illness HPI The patient is a 22 year old male who presents to the [facility] emergency department with a history of suicidal ideations with an attempt to harm himself by ingesting Zyprexa between 7 and 8 PM today. The patient reports that the prescription is his. He reports that they are 10 mg tablets. He reports that he took approximately 5 tablets. The patient reports having history of psychiatric disorder and has been diagnosed with psychosis requiring a recent admission to the hospital in August 2017. The patient reports that he has mainly been taking his medications on a scheduled basis, however 2 days he did forget to take them. He is currently on fluoxetine, as well as Zyprexa. Review of systems otherwise, the patient denies having any known recent fevers, cough or congestion, neck pain, chest pain, shortness of breath, abdominal pain , vomiting, diarrhea, urinary symptoms, or neurologic symptoms. [facility] Past Medical History Narrative Medical The patient's past medical history is reportedly significant for a psychiatric disorder. Asthma: No Autoimmune Disease: No Bipolar Disorder: Yes Anxiety: Yes Depression: Yes Heart Rhythm Problems: No Cancer: No Cardiovascular Problems: No High Cholesterol: No Chemotherapy: No Chest Pain: No Congestive Heart Failure: No COPD: No Cerebrovascular Accident: No Diabetes: No Diminished Hearing: No Endocrine: No GERD: No Genitourinary: No Hiatal Hernia: No Immune Disorder: No Kidney Stones: No Musculoskeletal: No Neurologic: No Psychiatric: Yes Reproductive: No Respiratory: No Migraines: No Radiation Therapy: No Renal Failure: No Seizures: No Sleep Apnea: No Thyroid Disease: No Ulcer: No Tetanus Vaccination: Unknown Influenza Vaccination: No Past Surgical History Surgical History: No Previous Surgery Abdominal Surgery: No AICD: No Arteriovenous Shunt: No Cardiac Surgery: No Ear Surgery: No Endocrine Surgery: No Eye Surgery: No Genitourinary Surgery: No Gynecologic Surgery: No Insulin Pump: No Joint Replacement: No Oral Surgery: No Pacemaker: No Thoracic Surgery: No Social History Alcohol Use: Yes (Occasionally) Tobacco Use: Yes (2 packs per day) Substance Use: Yes (MARIJUANA) Allergies-Medications (Allergen,Severity, Reaction): Coded Allergies: trazodone (Verified Allergy, Severe, Anaphylaxis, 10/07/17) VERIFIED WITH PATIENT 09/03/17 Reported Meds & Prescriptions Reported Meds & Active Scripts Active Olanzapine 10 Mg Tab 10 Mg PO DAILY Prozac (Fluoxetine HCl) 20 Mg Cap 20 Mg PO DAILY Review of Systems Except as stated in HPI: all other systems reviewed are Neg General / Constitutional: No: Fever Eyes: No: Visual changes HENT: No: Headaches Cardiovascular: No: Chest Pain or Discomfort Respiratory: No: Shortness of Breath Gastrointestinal: No: Abdominal Pain Genitourinary: No: Dysuria Musculoskeletal: No: Pain Skin: No Rash Neurologic: No: Weakness Psychiatric: Positive: Depression, Suicidal Ideations, Mood Disorder, Substance Abuse Endocrine: No: Polydipsia Hematologic/Lymphatic: No: Easy Bruising Physical Exam Narrative General: The patient is a well-developed well-nourished male in no acute distress. Head and Neck exam: Head is normocephalic atraumatic. Eyes: EOMI, pupils are equal round and reactive to light. Nose: Midline septum with pink mucous membranes Mouth: Dentition unremarkable. Moist mucus membranes. Posterior oropharynx is not erythematous. No tonsillar hypertrophy. Uvula midline. Airway patent. Neck: No palpable lymphadenopathy. No nuchal rigidity. No thyromegaly. Cardiovascular: Regular rate and rhythm without murmurs, gallops, or rubs. No pulse deficit to the extremities. Lungs: Clear to auscultation bilaterally. No wheezes, rhonchi, or rales. Abdomen: Soft, without tenderness to palpation in all 4 quadrants of the abdomen. No guarding, rebound, or rigidity. Normal bowel sounds are audible. No tenderness on palpation of McBurney's point. Extremities: No clubbing, cyanosis, or edema. 2+ pulses in all 4 extremities. Back: No spinous process tenderness to palpation. No costovertebral angle tenderness to palpation. Neurologic Exam: Grossly nonfocal. The patient has abnormal speech noted on examination, possibly related to a speech impediment. The patient reports that this was present previously. Skin Exam: No rash noted. Intact skin that is warm and dry. Data Data Last Documented VS Vital Signs Date Time Temp Pulse Resp B/P (MAP) Pulse Ox O2 Delivery O2 Flow Rate FiO2 10/08/17 05:00 67 16 84/55 (65) 98 Room Air 10/07/17 21:50 98.7 Orders Orders Complete Blood Count With Diff (10/07/17 22:03) Comprehensive Metabolic Panel (10/07/17 22:03) Thyroid Stimulating Hormone (10/07/17 22:) Urinalysis - C+S If Indicated (10/07/17 22:03) Electrocardiogram (10/07/17 22:03) Iv Access Insert/Monitor (10/07/17 22:03) Ecg Monitoring (10/07/17 22:) Psych Screen (10/07/17 22:) Drug Screen, Random Urine (10/07/17 22:03) Alcohol (Ethanol) (10/07/17 22:03) Salicylates (Aspirin) (10/07/17 22:03) Tylenol (Acetaminophen) (10/07/17 22:03) Sodium Chlor 0.9% 1000 Ml Inj (Ns 1000 M (10/07/17 22:15) Prothrombin Time / Inr (Pt) (10/07/17 22:05) Act Partial Throm Time (Ptt) (10/07/17 22:05) Potassium Chloride (Kcl) (10/07/17 23:45) Electrocardiogram (10/07/17 ) Sodium Chlor 0.9% 1000 Ml Inj (Ns 1000 M (10/08/17 00:30) Electrocardiogram (10/08/17 02:50) Labs Laboratory Tests Test 10/07/17 22:00 10/07/17 22:05 Urine Color LIGHT-YELLOW Urine Turbidity CLEAR Urine pH 6.0 Urine Specific [place] 1.004 Urine Protein NEG mg/dL Urine Glucose (UA) NEG mg/dL Urine Ketones NEG mg/dL Urine Occult Blood NEG Urine Nitrite NEG Urine Bilirubin NEG Urine Urobilinogen LESS THAN 2.0 MG/DL Urine Leukocyte Esterase NEG Urine WBC LESS THAN 1 /hpf Urine Mucus FEW /lpf Microscopic Urinalysis Comment CULT NOT INDICATED Urine Opiates Screen NEG Urine Barbiturates Screen NEG Urine Amphetamines Screen NEG Urine Benzodiazepines Screen NEG Urine Cocaine Screen NEG Urine Cannabinoids Screen POS White Blood Count 9.3 TH/MM3 Red Blood Count 4.81 MIL/MM3 Hemoglobin 15.7 GM/DL Hematocrit 45.1 % Mean Corpuscular Volume 93.7 FL Mean Corpuscular Hemoglobin 32.7 PG Mean Corpuscular Hemoglobin Concent 34.9 % Red Cell Distribution Width 13.6 % Platelet Count 486 TH/MM3 Mean Platelet Volume 7.5 FL Neutrophils (%) (Auto) 58.8 % Lymphocytes (%) (Auto) 31.5 % Monocytes (%) (Auto) 8.8 % Eosinophils (%) (Auto) 0.6 % Basophils (%) (Auto) 0.3 % Neutrophils # (Auto) 5.5 TH/MM3 Lymphocytes # (Auto) 2.9 TH/MM3 Monocytes # (Auto) 0.8 TH/MM3 Eosinophils # (Auto) 0.1 TH/MM3 Basophils # (Auto) 0.0 TH/MM3 CBC Comment DIFF FINAL Differential Comment Prothrombin Time 10.9 SEC Prothromb Time International Ratio 1.1 RATIO Activated Partial Thromboplast Time 26.6 SEC Blood Urea Nitrogen 9 MG/DL Creatinine 0.81 MG/DL Random Glucose 79 MG/DL Total Protein 7.8 GM/DL Albumin 4.2 GM/DL Calcium Level 8.7 MG/DL Alkaline Phosphatase 112 U/L Aspartate Amino Transf (AST/SGOT) 17 U/L Alanine Aminotransferase (ALT/SGPT) 29 U/L Total Bilirubin 0.3 MG/DL Sodium Level 143 MEQ/L Potassium Level 3.3 MEQ/L Chloride Level 108 MEQ/L Carbon Dioxide Level 25.9 MEQ/L Anion Gap 9 MEQ/L Estimat Glomerular Filtration Rate 119 ML/MIN Thyroid Stimulating Hormone 3rd Gen 0.443 uIU/ML Salicylates Level LESS THAN 1.7 MG/DL Acetaminophen Level LESS THAN 2.0 MCG/ML Ethyl Alcohol Level LESS THAN 3 MG/DL MDM Medical Decision Making Medical Screen Exam Complete: Yes Emergency Medical Condition: Yes Medical Record Reviewed: Yes Differential Diagnosis Suicide attempt, versus suicidal gesture Narrative Course During the course of the patient's emergency department visit, the patient's history, examination, and differential diagnosis were reviewed with the patient. The patient was placed on a natural science curator with oximetry and frequent blood pressure monitoring. The patient had IV access obtained and blood work sent for analysis. A psychiatric screen has been ordered. An EKG was done on arrival. The patient's EKG revealed a sinus rhythm at 54 with a sinus arrhythmia, QRS duration 92 ms, QTc [address] segment elevation. The patient was initially provided normal saline 1 L IV fluid bolus. The patient's laboratory studies were reviewed and remarkable for a white count of 9.3, hemoglobin 15.7, platelets 46 with 8.8 monocytes, CMP is remarkable for potassium of 3.3 which was supplemented orally, chloride 108, PT PTT within normal limits. Urine drug screen is positive for cannabinoids, acetaminophen less than 2, alcohol less than 3, salicylate less than 1.7, urinalysis is unremarkable. The patient was given a second liter of normal saline IV fluids. Repeat EKG was done approximately 2-1/2 hours after the initial one reveals a sinus bradycardia, QRS duration 97 ms, QTC [address] segment elevation. A final EKG done 3 hours later reveals sinus bradycardia with sinus arrhythmia, heart rate of 56, QRS duration 83 ms, QTC 411 ms, no acute ST segment elevation. The patient has remained awake and alert. The patient has been able to eat a tray of food and drink. The patient has been medically cleared for evaluation by the psychiatric screener and psychiatrist under a Bacon act. Jeannine Fu MD Oct 07, 2017 22:28
[2017-10-07 22:30] LABS: BILIRUBIN, URINE NEG (NEG); BLOOD, URINE NEG (NEG); GLUCOSE,URINE NEG (NEG); KETONE, URINE NEG (NEG); MUCUS URINE FEW /lpf (OCC); NITRITE,URINE NEG (NEG); URINE COLOR LIGHT-YELLOW (YELLW/STRAW); URINE LEUKOCYTE ESTERASE NEG (NEG)
[2017-10-07 22:34] LABS: INTERNATIONAL NORMALIZED RATIO 1.1 RATIO; PROTHROMBIN TIME - PATIENT 10.9 SEC (9.8-11.6)
[2017-10-07 22:46] LABS: ALBUMIN 4.2 GM/DL (3.4-5.0); ALT (GPT) 29 U/L (12-78); AST (GOT) 17 U/L (15-37); BICARBONATE 25.9 MEQ/L (21.0-32.0); BLOOD UREA NITROGEN 9 MG/DL (7-18); CALCIUM 8.7 MG/DL (8.5-10.1); CHLORIDE 108 MEQ/L (98-107); CREATININE 0.81 MG/DL (0.60-1.30); GLOMERULAR FILTRATION RATE 119 ML/MIN (>89); GLUCOSE,RANDOM 79 MG/DL (74-106); SODIUM (NA) 143 MEQ/L (136-145)
[2017-10-07 22:56] LABS: ACETAMINOPHEN LESS THAN 2.0 MCG/ML (10.0-30.0); ALKALINE PHOSPHATASE 112 U/L (45-117); TOTAL BILIRUBIN ADULT 0.3 MG/DL (0.2-1.0); TOTAL PROTEIN 7.8 GM/DL (6.4-8.2)
[2017-10-07 23:00] VITALS: BP 102/64; PULSE 50; RESP 14; O2SAT 97
[2017-10-07] MEDS ORDERED: POTASSIUM CHLORIDE 20 MEQ CONTROLLED RELEASE TAB PO ONE (23:45)
[2017-10-08 00:30] VITALS: BP 96/52; PULSE 50; RESP 14; O2SAT 98
[2017-10-08] MEDS ORDERED: SODIUM CHLOR 0.9% 1000 ML INJ 1,000 ML IV ONE (00:30)
[2017-10-08 02:00] VITALS: BP 90/55; PULSE 50; RESP 14; O2SAT 95
[2017-10-08 03:00] VITALS: BP 117/76; PULSE 72; RESP 16; O2SAT 99
[2017-10-08 05:00] VITALS: BP_SYST 84; BP_SYST 94; BP_DIAS 55; PULSE 67; RESP 16; O2SAT 98
[2017-10-08 07:00] VITALS: BP 102/61; PULSE 52; RESP 16; TEMP 97.8; O2SAT 98
--- NOTE | 2017-10-08 11:12 | EKG ---
Date Performed: 10/08/2017 Time Performed: 00:16:18 PTAGE: 22 years EKG: SINUS BRADYCARDIA BORDERLINE ECG Since the prior tracing, there has been no significant karen nge PREVIOUS TRACING : 09/04/2017 09.06 DOCTOR: Tristen France Interpretating Date/Time 10/08/2017 11:06:22
--- NOTE | 2017-10-08 11:12 | EKG ---
Date Performed: 10/08/2017 Time Performed: 03:02:54 PTAGE: 22 years EKG: SINUS BRADYCARDIA WITH SINUS ARRHYTHMIA ST ELEVATION, PROBABLY EARLY REPOLARIZATION BORDERL INE ECG Since the prior tracing, there has been no significant change PREVIOUS TRACING : 10/08/2017 00.16 DOCTOR: Tristen France Interpretating Date/Time 10/08/2017 11:06:14
--- NOTE | 2017-10-08 11:13 | EKG ---
Date Performed: 10/07/2017 Time Performed: 21:51:17 PTAGE: 22 years EKG: SINUS BRADYCARDIA WITH SINUS ARRHYTHMIA MINIMAL VOLTAGE CRITERIA FOR LVH, CONSIDER NORMAL V ARIANT BORDERLINE ECG Since the prior tracing, there has been no significant change PREVIOUS TRACING DOCTOR: Tristen France Interpretating Date/Time 10/08/2017 11:06:32
--- NOTE | 2017-10-08 17:17 | PD ---
History of Present Illness Chief Complaint: OD/ Ingestion Time Seen by Provider: 16:45 Travel History International Travel<30 Days: No Contact w/Intl Traveler<30days: No Known affected area: No Legal Status Legal Status: Bacon Act Bacon Act Signed By: Juvenal Rose History of Present Illness: History of Present Illness HPI The patient is a 22 year old male white identifies as a female, with history of adjustment disorder who presents to the [facility] emergency department under a Bacon act alleging that he took an unknown amount of prescription pills in an attempt to harm himself. As per the report it states that he originally reported a number was time but later bicycled was less than that. He reports the pills as being Zyprexa 10 mg tablets that belonged to him. The patient was monitored in secure environment and he presented no behavioral concerns and no suicidality. Electronic medical record is reviewed. He was recently admitted to our inpatient psychiatric unit having been discharged September 102017. At the time he came in reporting that he was having auditory hallucinations. Current toxicology is positive for cannabinoids which she admits to using. Patient is seen and evaluated in [facility]. Patient is alert, oriented, dressed in [facility] with poor to fair hygiene. The patient reports that he was feeling anxious and worried over his mother's current diagnosis and her difficulties that she is having with the chemotherapy. He states that he took the medicine as an impulsive act and denies that he wanted to . He continues to deny any suicidal or homicidal ideation, intent or plan. Reports compliance with medication after his discharge. There is no indication that the patient is experiencing any psychosis, any amadou or hypomania. Reports that he is sleeping well, eating well, with adequate level of energy. PFSH Past Medical History Asthma: No Autoimmune Disease: No Bipolar Disorder: Yes Anxiety: Yes Depression: Yes Heart Rhythm Problems: No Cancer: No Cardiovascular Problems: No High Cholesterol: No Chemotherapy: No Chest Pain: No Congestive Heart Failure: No COPD: No Cerebrovascular Accident: No Diabetes: No Diminished Hearing: No Endocrine: No GERD: No Genitourinary: No Hiatal Hernia: No Immune Disorder: No Kidney Stones: No Musculoskeletal: No Neurologic: No Psychiatric: Yes Reproductive: No Respiratory: No Migraines: No Radiation Therapy: No Renal Failure: No Seizures: No Sleep Apnea: No Thyroid Disease: No Ulcer: No Tetanus Vaccination: Unknown Influenza Vaccination: No Past Surgical History Surgical History: No Previous Surgery Abdominal Surgery: No AICD: No Arteriovenous Shunt: No Cardiac Surgery: No Ear Surgery: No Endocrine Surgery: No Eye Surgery: No Genitourinary Surgery: No Gynecologic Surgery: No Insulin Pump: No Joint Replacement: No Oral Surgery: No Pacemaker: No Thoracic Surgery: No Psychiatric History Psychiatric History Hx Psychiatric Treatment: HX OF MENTAL HEALTH TREATMENT IN [place]. WAS HOSPITALIZED AT [facility] AND DISCHARGED ON Aug. DENIES BEING HOSPITALIZED ANYWHERE ELSE SINCE THEN. Reports previous history of suicide attempts History of Inpatient Treatment: Yes ([facility] August 2017) Social History Single, never , born and raised in [place]. States currently living with mom. Father in long term since he was 12 years old. Patient is currently on disability. Hx Alcohol Use: Yes (Occasionally) Hx Tobacco Use: Yes (2 packs per day) Hx Substance Use: Yes (MARIJUANA) Substance Use Type: Marijuana Hx of Substance Use Treatment: No Family Psychiatric History Negative Allergies-Medications (Allergen,Severity, Reaction): Coded Allergies: trazodone (Verified Allergy, Severe, Anaphylaxis, 10/07/17) VERIFIED WITH PATIENT 09/03/17 Reported Meds & Prescriptions Reported Meds & Active Scripts Active Olanzapine 10 Mg Tab 10 Mg PO DAILY Prozac (Fluoxetine HCl) 20 Mg Cap 20 Mg PO DAILY Review of Systems Except as stated in HPI: all other systems reviewed are Neg Mental Status Examination Appearance: Appropriate (in hospital attire) Consciousness: Alert Orientation: x4 Motor Activity: Normal gait Speech: Incoherent, Speech impediment Language: Adequate Fund of Knowledge: Adequate Attention and Concentration: Adequate Memory: Unremarkable Mood: Appropriate Affect: Appropriate Thought Process & Associations: Intact, Logical, Goal directed Thought Content: Appropriate Hallucination Type: None Delusion Type: None Suicidal Ideation: No Suicidal Plan: No Suicidal Intention: No Homicidal Ideation: No Homicidal Plan: No Homicidal Intention: No Insight: Fair Judgment: Impulsive MDM Medical Decision Making Medical Record Reviewed: Yes Assessment/Plan 22-year-old single, male white identifies as a female, under a Bacon act for allegedly taken an unknown amount of prescription medication in an attempt to harm himself. The patient has presented different versions of the incident leading to the Bacon act. He states that he really didn't take as many as he initially had reported on night was probably only about 5 pills. He states that he was feeling anxious and impulsive and took the pills but that he does not want to . The patient contracts for safety and is requesting to be discharge. He will be returning to his mother's house. He is provided psychoeducation. He will follow-up with Bernardino Blackburn states that he has another appointment in approximately 2 months. Patient at this time does not present evidence of unstable mental illness as identified under the Bacon act. The Bacon act is lifted. Psychiatrically clear for discharge from ED. Orders Orders Complete Blood Count With Diff (10/07/17 22:03) Comprehensive Metabolic Panel (10/07/17 22:03) Thyroid Stimulating Hormone (10/07/17 22:03) Urinalysis - C+S If Indicated (10/07/17 22:03) Electrocardiogram (10/07/17 22:03) Iv Access Insert/Monitor (10/07/17 22:03) Ecg Monitoring (10/07/17 22:03) Psych Screen (10/07/17 22:03) Drug Screen, Random Urine (10/07/17 22:03) Alcohol (Ethanol) (10/07/17 22:03) Salicylates (Aspirin) (10/07/17 22:03) Tylenol (Acetaminophen) (10/07/17 22:03) Sodium Chlor 0.9% 1000 Ml Inj (Ns 1000 M (10/07/17 22:15) Prothrombin Time / Inr (Pt) (10/07/17 22:05) Act Partial Throm Time (Ptt) (10/07/17 22:05) Potassium Chloride (Kcl) (10/07/17 23:45) Electrocardiogram (10/07/17 ) Sodium Chlor 0.9% 1000 Ml Inj (Ns 1000 M (10/08/17 00:30) Electrocardiogram (10/08/17 02:50) Diet Regular Basic (10/08/17 Breakfast) Diet Regular Basic (10/08/17 Dinner) Results Vital Signs Date Time Temp Pulse Resp B/P (MAP) Pulse Ox O2 Delivery O2 Flow Rate FiO2 10/08/17 11:05 10/08/17 07:00 52 16 99 Room Air 10/08/17 07:00 97.8 52 16 102/61 (75) 98 Room Air 10/08/17 05:00 67 16 94/55 (68) 98 Room Air 10/08/17 03:00 72 16 117/76 (90) 99 Room Air 10/08/17 02:00 50 14 90/55 (67) 95 Room Air 10/08/17 00:30 50 14 96/52 (67) 98 Room Air 10/07/17 23:00 50 14 102/64 (77) 97 Room Air 10/07/17 21:50 98.7 56 16 125/66 (85) 97 Laboratory Tests Test 10/07/17 22:00 10/07/17 22:05 Urine Color LIGHT-YELLOW Urine Turbidity CLEAR Urine pH 6.0 Urine Specific [place] 1.004 Urine Protein NEG Urine Glucose (UA) NEG Urine Ketones NEG Urine Occult Blood NEG Urine Nitrite NEG Urine Bilirubin NEG Urine Urobilinogen LESS THAN 2.0 Urine Leukocyte Esterase NEG Urine WBC LESS THAN 1 Urine Mucus FEW Microscopic Urinalysis Comment CULT NOT INDICATED Urine Opiates Screen NEG Urine Barbiturates Screen NEG Urine Amphetamines Screen NEG Urine Benzodiazepines Screen NEG Urine Cocaine Screen NEG Urine Cannabinoids Screen POS White Blood Count 9.3 Red Blood Count 4.81 Hemoglobin 15.7 Hematocrit 45.1 Mean Corpuscular Volume 93.7 Mean Corpuscular Hemoglobin 32.7 Mean Corpuscular Hemoglobin Concent 34.9 Red Cell Distribution Width 13.6 Platelet Count 486 Mean Platelet Volume 7.5 Neutrophils (%) (Auto) 58.8 Lymphocytes (%) (Auto) 31.5 Monocytes (%) (Auto) 8.8 Eosinophils (%) (Auto) 0.6 Basophils (%) (Auto) 0.3 Neutrophils # (Auto) 5.5 Lymphocytes # (Auto) 2.9 Monocytes # (Auto) 0.8 Eosinophils # (Auto) 0.1 Basophils # (Auto) 0.0 CBC Comment DIFF FINAL Differential Comment Prothrombin Time 10.9 Prothromb Time International Ratio 1.1 Activated Partial Thromboplast Time 26.6 Blood Urea Nitrogen 9 Creatinine 0.81 Random Glucose 79 Total Protein 7.8 Albumin 4.2 Calcium Level 8.7 Alkaline Phosphatase 112 Aspartate Amino Transf (AST/SGOT) 17 Alanine Aminotransferase (ALT/SGPT) 29 Total Bilirubin 0.3 Sodium Level 143 Potassium Level 3.3 Chloride Level 108 Carbon Dioxide Level 25.9 Anion Gap 9 Estimat Glomerular Filtration Rate 119 Thyroid Stimulating Hormone 3rd Gen 0.443 Salicylates Level LESS THAN 1.7 Acetaminophen Level LESS THAN 2.0 Ethyl Alcohol Level LESS THAN 3 Diagnosis Primary Impression: Adjustment disorder with mixed anxiety and depressed mood Psychiatrically Cleared: Yes Med/ Other Pt Specific Info: No Change to Meds Disposition: 01 DISCHARGE HOME Condition: Stable Jes Maria Oct 08, 2017 17:17
[2017-10-08 17:41] VITALS: BP 115/59; PULSE 56; RESP 16; TEMP 97.8; O2SAT 97
--- NOTE | 2017-10-08 17:55 | PD ---
Physical Exam Date Seen by Provider: Oct 08, 2017 Time Seen by Provider: 17:53 Narrative 22-year-old male previously medically cleared for psychiatric evaluation was seen by psychiatric staff and felt to be stable for discharge. Patient remains medically stable at this time. Patient is to follow-up as per psychiatric note Data Data Last Documented VS Vital Signs Date Time Temp Pulse Resp B/P (MAP) Pulse Ox O2 Delivery O2 Flow Rate FiO2 10/08/17 17:41 97.8 56 16 115/59 (77) 97 Room Air Orders Orders Complete Blood Count With Diff (10/07/17 22:03) Comprehensive Metabolic Panel (10/07/17 22:03) Thyroid Stimulating Hormone (10/07/17 22:03) Urinalysis - C+S If Indicated (10/07/17 22:03) Electrocardiogram (10/07/17 22:03) Iv Access Insert/Monitor (10/07/17 22:03) Ecg Monitoring (10/07/17 22:03) Psych Screen (10/07/17 22:03) Drug Screen, Random Urine (10/07/17 22:03) Alcohol (Ethanol) (10/07/17 22:03) Salicylates (Aspirin) (10/07/17 22:03) Tylenol (Acetaminophen) (10/07/17 22:03) Sodium Chlor 0.9% 1000 Ml Inj (Ns 1000 M (10/07/17 22:15) Prothrombin Time / Inr (Pt) (10/07/17 22:05) Act Partial Throm Time (Ptt) (10/07/17 22:05) Potassium Chloride (Kcl) (10/07/17 23:45) Electrocardiogram (10/07/17 ) Sodium Chlor 0.9% 1000 Ml Inj (Ns 1000 M (10/08/17 00:30) Electrocardiogram (10/08/17 02:50) Diet Regular Basic (10/08/17 Breakfast) Diet Regular Basic (10/08/17 Dinner) Labs Laboratory Tests Test 10/07/17 22:00 10/07/17 22:05 Urine Color LIGHT-YELLOW Urine Turbidity CLEAR Urine pH 6.0 Urine Specific [place] 1.004 Urine Protein NEG mg/dL Urine Glucose (UA) NEG mg/dL Urine Ketones NEG mg/dL Urine Occult Blood NEG Urine Nitrite NEG Urine Bilirubin NEG Urine Urobilinogen LESS THAN 2.0 MG/DL Urine Leukocyte Esterase NEG Urine WBC LESS THAN 1 /hpf Urine Mucus FEW /lpf Microscopic Urinalysis Comment CULT NOT INDICATED Urine Opiates Screen NEG Urine Barbiturates Screen NEG Urine Amphetamines Screen NEG Urine Benzodiazepines Screen NEG Urine Cocaine Screen NEG Urine Cannabinoids Screen POS White Blood Count 9.3 TH/MM3 Red Blood Count 4.81 MIL/MM3 Hemoglobin 15.7 GM/DL Hematocrit 45.1 % Mean Corpuscular Volume 93.7 FL Mean Corpuscular Hemoglobin 32.7 PG Mean Corpuscular Hemoglobin Concent 34.9 % Red Cell Distribution Width 13.6 % Platelet Count 486 TH/MM3 Mean Platelet Volume 7.5 FL Neutrophils (%) (Auto) 58.8 % Lymphocytes (%) (Auto) 31.5 % Monocytes (%) (Auto) 8.8 % Eosinophils (%) (Auto) 0.6 % Basophils (%) (Auto) 0.3 % Neutrophils # (Auto) 5.5 TH/MM3 Lymphocytes # (Auto) 2.9 TH/MM3 Monocytes # (Auto) 0.8 TH/MM3 Eosinophils # (Auto) 0.1 TH/MM3 Basophils # (Auto) 0.0 TH/MM3 CBC Comment DIFF FINAL Differential Comment Prothrombin Time 10.9 SEC Prothromb Time International Ratio 1.1 RATIO Activated Partial Thromboplast Time 26.6 SEC Blood Urea Nitrogen 9 MG/DL Creatinine 0.81 MG/DL Random Glucose 79 MG/DL Total Protein 7.8 GM/DL Albumin 4.2 GM/DL Calcium Level 8.7 MG/DL Alkaline Phosphatase 112 U/L Aspartate Amino Transf (AST/SGOT) 17 U/L Alanine Aminotransferase (ALT/SGPT) 29 U/L Total Bilirubin 0.3 MG/DL Sodium Level 143 MEQ/L Potassium Level 3.3 MEQ/L Chloride Level 108 MEQ/L Carbon Dioxide Level 25.9 MEQ/L Anion Gap 9 MEQ/L Estimat Glomerular Filtration Rate 119 ML/MIN Thyroid Stimulating Hormone 3rd Gen 0.443 uIU/ML Salicylates Level LESS THAN 1.7 MG/DL Acetaminophen Level LESS THAN 2.0 MCG/ML Ethyl Alcohol Level LESS THAN 3 MG/DL [facility] Medical Record Reviewed: Yes Supervised Visit with RIGO: Yes Narrative Course 22-year-old male previously medically cleared for psychiatric evaluation was seen by psychiatric staff and felt to be stable for discharge. Patient remains medically stable at this time. Patient is to follow-up as per psychiatric note Diagnosis Primary Impression: Adjustment disorder with mixed anxiety and depressed mood Patient Instructions: General Instructions Disposition: 01 DISCHARGE HOME Condition: Stable Neel Gil Oct 08, 2017 17:55
== END 2017-10-08 18:38 | disposition home or self-care (01) ==
LOC: NEPE 21:16 → NEPJ 10-08 18:38
DX: F43.23 Adjustment disorder with mixed anxiety and depressed mood (principal); R45.851 Suicidal ideations; F31.9 Bipolar disorder, unspecified; F17.200 Nicotine dependence, unspecified, uncomplicated; F12.90 Cannabis use, unspecified, uncomplicated; R94.31 Abnormal electrocardiogram [ECG] [EKG]
CPT/HCPCS: 80053; 80307; 81001; 84443; 85025; 85610; 85730; 93005; 96360; 96361; 99284; J7030

== ENCOUNTER 2018-01-19 17:07 | Emergency (ER) | payer MEDICAID, OTHER ==
[~2018-01-19] VITALS: Ht 162.6 cm; Wt 59.1 kg
[~2018-01-19 17:07] MED LIST changes: -OLAN15TA PO
[2018-01-19 17:17] VITALS: BP 121/49; PULSE 67; RESP 18; TEMP 98.3; O2SAT 97
--- NOTE | 2018-01-19 17:56 | PD ---
HPI Chief Complaint: Psychiatric Symptoms Time Seen by Provider: 17:50 Travel History International Travel<30 days: No Contact w/Intl Traveler<30days: No Traveled to known affect area: No History of Present Illness HPI This patient has been here 3 times earlier this year for psychiatric evaluations. Each time he has been diagnosed with adjustment disorder. Today he comes because he just does not care if he wakes up or not. He stopped short of saying he is actively suicidal. He has no specific plan. He does not do IV drugs or alcohol. He does smoke some pot and smokes cigarettes. He denies any physical complaint. Symptom severity is moderate. Duration 1 week. No alleviating factors. No exacerbating factors. PFSH Past Medical History Asthma: No Autoimmune Disease: No Bipolar Disorder: Yes Anxiety: Yes Depression: Yes Heart Rhythm Problems: No Cancer: No Cardiovascular Problems: No High Cholesterol: No Chemotherapy: No Chest Pain: No Congestive Heart Failure: No COPD: No Cerebrovascular Accident: No Diabetes: No Diminished Hearing: No Endocrine: No GERD: No Genitourinary: No Hiatal Hernia: No Immune Disorder: No Kidney Stones: No Musculoskeletal: No Neurologic: No Psychiatric: Yes Reproductive: No Respiratory: No Migraines: No Radiation Therapy: No Renal Failure: No Seizures: No Sleep Apnea: No Thyroid Disease: No Ulcer: No Past Surgical History Abdominal Surgery: No AICD: No Arteriovenous Shunt: No Cardiac Surgery: No Ear Surgery: No Endocrine Surgery: No Eye Surgery: No Genitourinary Surgery: No Gynecologic Surgery: No Insulin Pump: No Joint Replacement: No Oral Surgery: No Pacemaker: No Thoracic Surgery: No Social History Alcohol Use: Yes (Occasionally) Tobacco Use: Yes (2 packs per day) Substance Use: Yes (MARIJUANA) Allergies-Medications (Allergen,Severity, Reaction): Coded Allergies: trazodone (Verified Allergy, Severe, Anaphylaxis, 01/19/18) VERIFIED WITH PATIENT 09/03/17 Reported Meds & Prescriptions Reported Meds & Active Scripts Active Olanzapine 10 Mg Tab 10 Mg PO DAILY Prozac (Fluoxetine HCl) 20 Mg Cap 20 Mg PO DAILY Review of Systems General / Constitutional: No: Fever Eyes: No: Visual changes HENT: No: Headaches Cardiovascular: No: Chest Pain or Discomfort Respiratory: No: Shortness of Breath Gastrointestinal: No: Abdominal Pain Genitourinary: No: Dysuria Musculoskeletal: No: Pain Skin: No Rash Neurologic: No: Weakness Psychiatric: Positive: Depression, Suicidal Ideations, Substance Abuse Endocrine: No: Polydipsia Hematologic/Lymphatic: No: Easy Bruising Physical Exam Narrative GENERAL: Disheveled , well-developed patient in no apparent distress. SKIN: Focused skin assessment reveals no rash and nodules. Skin is Warm and dry. HEAD: Atraumatic. Normocephalic. EYES: Pupils equal and round. No scleral icterus. No injection or drainage. ENT: No nasal bleeding or discharge. Mucous membranes pink and moist. NECK: Trachea midline. No JVD. CARDIOVASCULAR: Regular rate and rhythm. No murmur appreciated. RESPIRATORY: No accessory muscle use. Clear to auscultation. Breath sounds equal bilaterally. GASTROINTESTINAL: Abdomen soft, non-tender, nondistended. Hepatic and splenic margins not palpable. MUSCULOSKELETAL: No obvious deformities. No clubbing. No cyanosis. No edema. NEUROLOGICAL: Awake and alert. No obvious cranial nerve deficits. Motor grossly within normal limits. Difficult to understand speech. He says this is his baseline speech PSYCHIATRIC: Appropriate mood and affect; insight and judgment reduced. Data Data Last Documented VS Vital Signs Date Time Temp Pulse Resp B/P (MAP) Pulse Ox O2 Delivery O2 Flow Rate FiO2 01/19/18 17:17 98.3 67 18 121/49 (73) 97 Orders Orders Complete Blood Count With Diff (01/19/18 17:53) Comprehensive Metabolic Panel (01/19/18 17:53) Thyroid Stimulating Hormone (01/19/18 17:53) Iv Access Insert/Monitor (01/19/18 17:53) Psych Screen (01/19/18 17:53) Drug Screen, Random Urine (01/19/18 17:53) Alcohol (Ethanol) (01/19/18 17:53) Labs Laboratory Tests Test 01/19/18 18:10 White Blood Count 7.7 TH/MM3 Red Blood Count 4.49 MIL/MM3 Hemoglobin 15.1 GM/DL Hematocrit 42.1 % Mean Corpuscular Volume 94.0 FL Mean Corpuscular Hemoglobin 33.6 PG Mean Corpuscular Hemoglobin Concent 35.7 % Red Cell Distribution Width 13.3 % Platelet Count 344 TH/MM3 Mean Platelet Volume 9.3 FL Neutrophils (%) (Auto) 52.1 % Lymphocytes (%) (Auto) 38.7 % Monocytes (%) (Auto) 8.5 % Eosinophils (%) (Auto) 0.3 % Basophils (%) (Auto) 0.4 % Neutrophils # (Auto) 4.0 TH/MM3 Lymphocytes # (Auto) 3.0 TH/MM3 Monocytes # (Auto) 0.7 TH/MM3 Eosinophils # (Auto) 0.0 TH/MM3 Basophils # (Auto) 0.0 TH/MM3 CBC Comment DIFF FINAL Differential Comment Blood Urea Nitrogen 6 MG/DL Creatinine 0.97 MG/DL Random Glucose 81 MG/DL Total Protein 7.6 GM/DL Albumin 4.3 GM/DL Calcium Level 8.9 MG/DL Alkaline Phosphatase 68 U/L Aspartate Amino Transf (AST/SGOT) 24 U/L Alanine Aminotransferase (ALT/SGPT) 50 U/L Total Bilirubin 0.2 MG/DL Sodium Level 142 MEQ/L Potassium Level 3.7 MEQ/L Chloride Level 107 MEQ/L Carbon Dioxide Level 25.6 MEQ/L Anion Gap 9 MEQ/L Estimat Glomerular Filtration Rate 97 ML/MIN Thyroid Stimulating Hormone 3rd Gen 0.640 uIU/ML Urine Opiates Screen NEG Urine Barbiturates Screen NEG Urine Amphetamines Screen NEG Urine Benzodiazepines Screen NEG Urine Cocaine Screen NEG Urine Cannabinoids Screen POS Ethyl Alcohol Level LESS THAN 3 MG/DL MDM Medical Decision Making Medical Screen Exam Complete: Yes Emergency Medical Condition: Yes Medical Record Reviewed: Yes Differential Diagnosis Suicidal ideation, adjustment disorder, depression Narrative Course I have reviewed the patient's electronic medical record. Has been diagnosed with adjustment disorder 3 times this year IV placed and labs sent I have ordered medical clearance workup Psych screen has been ordered, he desires that evaluation Patient's labs are normal. Tox screen positive only for marijuana. This patient is is medically stable as I can make him. He is awaiting psychiatric evaluation and disposition will be per psychiatry Diagnosis Primary Impression: Depression with suicidal ideation Mike Earl MD January 19, 2018 17:56
[2018-01-19 18:49] LABS: BASOPHIL % 0.4 % (0.0-2.0); EOSINOPHIL % 0.3 % (0.0-4.0); HEMATOCRIT 42.1 % (39.0-51.0); HEMOGLOBIN 15.1 GM/DL (13.0-17.0); LYMPH % 38.7 % (9.0-44.0); MEAN CORPUSCULAR HEMOGLOBIN 33.6 PG (27.0-34.0); MEAN CORPUSCULAR HGB CONC 35.7 % (32.0-36.0); MEAN PLATELET VOLUME 9.3 FL (7.0-11.0); MONO % 8.5 % (0.0-8.0); MONOCYTE # 0.7 TH/MM3 (0-0.9); NEUT % 52.1 % (16.0-70.0); PLATELET COUNT 344 TH/MM3 (150-450); RED BLOOD COUNT 4.49 MIL/MM3 (4.50-5.90); RED CELL DISTRIBUTION WIDTH 13.3 % (11.6-17.2); WHITE BLOOD COUNT 7.7 TH/MM3 (4.0-11.0)
[2018-01-19 18:55] LABS: ALBUMIN 4.3 GM/DL (3.4-5.0); ALT (GPT) 50 U/L (12-78); AST (GOT) 24 U/L (15-37); BICARBONATE 25.6 MEQ/L (21.0-32.0); BLOOD UREA NITROGEN 6 MG/DL (7-18); CALCIUM 8.9 MG/DL (8.5-10.1); CHLORIDE 107 MEQ/L (98-107); CREATININE 0.97 MG/DL (0.60-1.30); GLOMERULAR FILTRATION RATE 97 ML/MIN (>89); GLUCOSE,RANDOM 81 MG/DL (74-106); SODIUM (NA) 142 MEQ/L (136-145)
[2018-01-19 19:05] LABS: ALKALINE PHOSPHATASE 68 U/L (45-117); TOTAL BILIRUBIN ADULT 0.2 MG/DL (0.2-1.0); TOTAL PROTEIN 7.6 GM/DL (6.4-8.2)
--- NOTE | 2018-01-19 19:58 | PD ---
History of Present Illness Chief Complaint: Psychiatric Symptoms Time Seen by Provider: 19:45 Travel History International Travel<30 Days: No Contact w/Intl Traveler<30days: No Known affected area: No Legal Status Legal Status: Voluntary History of Present Illness: History of Present Illness HPI This patient is a 22 year old white male who identifies as a female, with history of adjustment disorder who presents to the [facility] emergency department on a voluntary basis requesting a psychiatric evaluation. The patient reported to the ED provider that he came today "because he just does not care if he wakes up or not." He did not present any active suicidal ideation or plan. Electronic medical record is reviewed. The patient was last seen on October 07 after he took several Zyprexa pills as an impulsive act. He was psychiatrically admitted on August 2017 after reporting hearing voices. It was felt by the treating psychiatrist that these were not true hallucinations but at patient is insistent he was placed on Zyprexa. The patient tells me that he took the medicine for 2 months but that it did not work. Patient is seen in the ED. He is alert and oriented, disheveled appearance. He reports feeling sad over his mother being on chemotherapy again and having a resurgence of her cancer. He is reporting he feels depressed as well as anxious. No reports of auditory hallucinations. He describes his sleep is variable, appetite is fair. He spends his day listening to music. Patient will like to have a medication change and can 10 years to report that he took the Zyprexa for approximately 2 months but that "it did not work". The patient does state he followed up at [facility] but was not prescribed Klonopin which she is states he has taken in the past and it has been more helpful to him. TC to mother Homar at [phone].She reports that patient has at least six bottles of medication at home and that he only takes it for 1 week and then stops it.She has no concerns for his safety and will pick him up if he is discharged. PFSH Past Medical History Asthma: No Autoimmune Disease: No Bipolar Disorder: Yes Anxiety: Yes Depression: Yes Heart Rhythm Problems: No Cancer: No Cardiovascular Problems: No High Cholesterol: No Chemotherapy: No Chest Pain: No Congestive Heart Failure: No COPD: No Cerebrovascular Accident: No Diabetes: No Diminished Hearing: No Endocrine: No GERD: No Genitourinary: No Hiatal Hernia: No Immune Disorder: No Kidney Stones: No Musculoskeletal: No Neurologic: No Psychiatric: Yes Reproductive: No Respiratory: No Migraines: No Radiation Therapy: No Renal Failure: No Seizures: No Sleep Apnea: No Thyroid Disease: No Ulcer: No Past Surgical History Abdominal Surgery: No AICD: No Arteriovenous Shunt: No Cardiac Surgery: No Ear Surgery: No Endocrine Surgery: No Eye Surgery: No Genitourinary Surgery: No Gynecologic Surgery: No Insulin Pump: No Joint Replacement: No Oral Surgery: No Pacemaker: No Thoracic Surgery: No Psychiatric History Psychiatric History Hx Psychiatric Treatment: HX OF MENTAL HEALTH TREATMENT IN [place]. WAS HOSPITALIZED AT [facility] AND DISCHARGED ON Aug. Reports previous history of suicide attempts. Was receiving outpatient care at [facility]. Non-medication compliant. History of Inpatient Treatment: Yes Guns or firearms in home: No Social History Single, never . Lives with his mother. Patient is on disability. Hx Alcohol Use: Yes (Occasionally) Hx Tobacco Use: Yes (2 packs per day) Hx Substance Use: Yes (MARIJUANA) Substance Use Type: Marijuana Hx of Substance Use Treatment: No Family Psychiatric History Negative Allergies-Medications (Allergen,Severity, Reaction): Coded Allergies: trazodone (Verified Allergy, Severe, Anaphylaxis, 01/19/18) VERIFIED WITH PATIENT 09/03/17 Reported Meds & Prescriptions Reported Meds & Active Scripts Active Olanzapine 10 Mg Tab 10 Mg PO DAILY Prozac (Fluoxetine HCl) 20 Mg Cap 20 Mg PO DAILY Mental Status Examination Appearance: Disheveled Consciousness: Alert Orientation: x4 Motor Activity: Normal gait Speech: Speech impediment (Difficult to understand at times) Language: Adequate Fund of Knowledge: Adequate Attention and Concentration: Adequate Memory: Unremarkable Mood: Angry Affect: Appropriate Thought Process & Associations: Intact, Logical, Goal directed Thought Content: Appropriate Hallucination Type: None Delusion Type: None Suicidal Ideation: No Suicidal Plan: No Suicidal Intention: No Homicidal Ideation: No Homicidal Plan: No Homicidal Intention: No Insight: Poor Judgment: Impulsive MDM Medical Decision Making Medical Record Reviewed: Yes Assessment/Plan 22-year-old with history of adjustment disorder who presents to the ED on a voluntary basis requesting a psychiatric evaluation and reporting vague passive suicidal ideation. Patient will be monitored overnight in [facility] pod. Nursing report reviewed. Patient presented no behavioral dysregulation and no suicidality. I have contacted his mother who states that the patient does not take the medication and that she has no concerns if he were to be discharged. I met with patient again on SundayJanuary 20. I have once again recommended compliance with prescribed medication. The patient is upset because [facility] does not provide a Klonopin. I have recommended that he follow up with private psychiatrist or his PCP. I have also instructed the patient and provided psychoeducation regarding medication risks benefits and side effects including importance of taking the medication for extended period of time to receive maximum benefit. At this time the patient does not meet criteria for inpatient psychiatric treatment. He will be discharged with recommendation to follow up as outpatient. Psychiatric clear for discharge from the ED Orders Orders Complete Blood Count With Diff (01/19/18 17:53) Comprehensive Metabolic Panel (01/19/18 17:53) Thyroid Stimulating Hormone (01/19/18 17:53) Iv Access Insert/Monitor (01/19/18 17:53) Psych Screen (01/19/18 17:53) Drug Screen, Random Urine (01/19/18 17:53) Alcohol (Ethanol) (01/19/18 17:53) Results Vital Signs Date Time Temp Pulse Resp B/P (MAP) Pulse Ox O2 Delivery O2 Flow Rate FiO2 01/19/18 17:17 98.3 67 18 121/49 (73) 97 Laboratory Tests Test 01/19/18 18:10 White Blood Count 7.7 Red Blood Count 4.49 Hemoglobin 15.1 Hematocrit 42.1 Mean Corpuscular Volume 94.0 Mean Corpuscular Hemoglobin 33.6 Mean Corpuscular Hemoglobin Concent 35.7 Red Cell Distribution Width 13.3 Platelet Count 344 Mean Platelet Volume 9.3 Neutrophils (%) (Auto) 52.1 Lymphocytes (%) (Auto) 38.7 Monocytes (%) (Auto) 8.5 Eosinophils (%) (Auto) 0.3 Basophils (%) (Auto) 0.4 Neutrophils # (Auto) 4.0 Lymphocytes # (Auto) 3.0 Monocytes # (Auto) 0.7 Eosinophils # (Auto) 0.0 Basophils # (Auto) 0.0 CBC Comment DIFF FINAL Differential Comment Blood Urea Nitrogen 6 Creatinine 0.97 Random Glucose 81 Total Protein 7.6 Albumin 4.3 Calcium Level 8.9 Alkaline Phosphatase 68 Aspartate Amino Transf (AST/SGOT) 24 Alanine Aminotransferase (ALT/SGPT) 50 Total Bilirubin 0.2 Sodium Level 142 Potassium Level 3.7 Chloride Level 107 Carbon Dioxide Level 25.6 Anion Gap 9 Estimat Glomerular Filtration Rate 97 Thyroid Stimulating Hormone 3rd Gen 0.640 Urine Opiates Screen NEG Urine Barbiturates Screen NEG Urine Amphetamines Screen NEG Urine Benzodiazepines Screen NEG Urine Cocaine Screen NEG Urine Cannabinoids Screen POS Ethyl Alcohol Level LESS THAN 3 Diagnosis Primary Impression: Adjustment disorder with mixed anxiety and depressed mood Ruled Out: Depression with suicidal ideation Psychiatrically Cleared: Yes Med/ Other Pt Specific Info: No Change to Meds Disposition: 01 DISCHARGE HOME Condition: Stable Jes Maria [facility] January 19, 2018 19:58
[2018-01-20 06:34] VITALS: BP 92/51; PULSE 68; RESP 18; TEMP 98.3; O2SAT 97
--- NOTE | 2018-01-20 13:48 | PD ---
Physical Exam Date Seen by Provider: January 20, 2018 Narrative 22-year-old male presents emergency department for 'not caring whether or not he wakes up'. He was evaluated by the initial provider medically cleared to see psych. Psych evaluate this patient and advised that he could follow-up as an outpatient. Patient denies any suicidal homicidal ideations at this time. He will be discharged with his mother to go home. Data Data Last Documented VS Vital Signs Date Time Temp Pulse Resp B/P (MAP) Pulse Ox O2 Delivery O2 Flow Rate FiO2 01/20/18 14:00 01/20/18 06:34 98.3 68 18 97 Room Air Orders Orders Complete Blood Count With Diff (01/19/18 17:53) Comprehensive Metabolic Panel (01/19/18 17:53) Thyroid Stimulating Hormone (01/19/18 17:53) Iv Access Insert/Monitor (01/19/18 17:53) Psych Screen (01/19/18 17:53) Drug Screen, Random Urine (01/19/18 17:53) Alcohol (Ethanol) (01/19/18 17:53) Diet Regular Basic (01/20/18 Breakfast) Diet Regular Basic (01/20/18 Lunch) Ed Discharge Order (01/20/18 13:48) Labs Laboratory Tests Test 01/19/18 18:10 White Blood Count 7.7 TH/MM3 Red Blood Count 4.49 MIL/MM3 Hemoglobin 15.1 GM/DL Hematocrit 42.1 % Mean Corpuscular Volume 94.0 FL Mean Corpuscular Hemoglobin 33.6 PG Mean Corpuscular Hemoglobin Concent 35.7 % Red Cell Distribution Width 13.3 % Platelet Count 344 TH/MM3 Mean Platelet Volume 9.3 FL Neutrophils (%) (Auto) 52.1 % Lymphocytes (%) (Auto) 38.7 % Monocytes (%) (Auto) 8.5 % Eosinophils (%) (Auto) 0.3 % Basophils (%) (Auto) 0.4 % Neutrophils # (Auto) 4.0 TH/MM3 Lymphocytes # (Auto) 3.0 TH/MM3 Monocytes # (Auto) 0.7 TH/MM3 Eosinophils # (Auto) 0.0 TH/MM3 Basophils # (Auto) 0.0 TH/MM3 CBC Comment DIFF FINAL Differential Comment Blood Urea Nitrogen 6 MG/DL Creatinine 0.97 MG/DL Random Glucose 81 MG/DL Total Protein 7.6 GM/DL Albumin 4.3 GM/DL Calcium Level 8.9 MG/DL Alkaline Phosphatase 68 U/L Aspartate Amino Transf (AST/SGOT) 24 U/L Alanine Aminotransferase (ALT/SGPT) 50 U/L Total Bilirubin 0.2 MG/DL Sodium Level 142 MEQ/L Potassium Level 3.7 MEQ/L Chloride Level 107 MEQ/L Carbon Dioxide Level 25.6 MEQ/L Anion Gap 9 MEQ/L Estimat Glomerular Filtration Rate 97 ML/MIN Thyroid Stimulating Hormone 3rd Gen 0.640 uIU/ML Urine Opiates Screen NEG Urine Barbiturates Screen NEG Urine Amphetamines Screen NEG Urine Benzodiazepines Screen NEG Urine Cocaine Screen NEG Urine Cannabinoids Screen POS Ethyl Alcohol Level LESS THAN 3 MG/DL MDM Supervised Visit with RIGO: No Diagnosis Primary Impression: Adjustment disorder with mixed anxiety and depressed mood Ruled Out: Depression with suicidal ideation Disposition: 01 DISCHARGE HOME Condition: Stable Susan Javed January 20, 2018 13:48
== END 2018-01-20 14:12 | disposition home or self-care (01) ==
LOC: NEPD 17:07 → NEPJ 01-20 14:12
DX: F43.23 Adjustment disorder with mixed anxiety and depressed mood (principal); F12.90 Cannabis use, unspecified, uncomplicated; F17.200 Nicotine dependence, unspecified, uncomplicated; F31.9 Bipolar disorder, unspecified; Z79.899 Other long term (current) drug therapy
CPT/HCPCS: 80053; 80307; 84443; 85025; 99283

== ENCOUNTER 2018-01-24 23:15 | Emergency (ER) | payer MEDICAID ==
[~2018-01-24] VITALS: Ht 165.1 cm; Wt 60.0 kg
[2018-01-24 23:25] VITALS: BP 121/73; PULSE 68; RESP 20; TEMP 97.8; O2SAT 100
[2018-01-24] MEDS ORDERED: IBUPROFEN 600 MG TAB PO ONE (23:45)
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
[2018-01-25 00:24] VITALS: BP 120/74
== END 2018-01-25 00:31 | disposition home or self-care (01) ==
LOC: PHED 23:15
DX: M25.531 Pain in right wrist (principal); M25.561 Pain in right knee; M54.2 Cervicalgia; V19.9XXA Pedal cyclist (driver) (passenger) injured in unspecified traffic accident, initial encounter; Y93.55 Activity, bike riding; F31.9 Bipolar disorder, unspecified; F41.9 Anxiety disorder, unspecified; F12.90 Cannabis use, unspecified, uncomplicated; Z72.0 Tobacco use
CPT/HCPCS: 73110; 73564; 99283

== ENCOUNTER 2018-01-26 21:16 | Emergency (ER) | payer MEDICAID, OTHER ==
[2018-01-26 21:57] VITALS: BP 111/66; PULSE 63; RESP 18; TEMP 98.5; O2SAT 98
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
[2018-01-27] MEDS ORDERED: IBUPROFEN 600 MG TAB PO ONE (00:30)
== END 2018-01-27 00:35 | disposition home or self-care (01) ==
LOC: NEPD 21:16
DX: S16.1XXA Strain of muscle, fascia and tendon at neck level, initial encounter (principal); M79.641 Pain in right hand; F12.90 Cannabis use, unspecified, uncomplicated; F31.9 Bipolar disorder, unspecified; V19.9XXA Pedal cyclist (driver) (passenger) injured in unspecified traffic accident, initial encounter; Y93.55 Activity, bike riding; Z72.0 Tobacco use
CPT/HCPCS: 72050; 73130; 99284

== ENCOUNTER 2018-04-21 21:48 | Inpatient (IN) ==
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
[2018-04-22] MEDS ORDERED: Aluminum/Magnesium/Simethacone Susp 30 ML UDC PO PRN (10:50)
--- NOTE | 2018-04-22 11:12 | P.PNPSY ---
Assessment and Plan - Plan Plan: Estimated LOS: [] days
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
[2018-04-22] MEDS: LORazepam 0.5 MG Tablet PO PRN (15:52)
[2018-04-22] MEDS: Acetaminophen 325 MG Tablet PO PRN ×2 (15:52→20:46)
[2018-04-22] MEDS: Senna/Docusate Sodium 8.6/50 MG Tablet PO SCH (20:46)
[2018-04-22] MEDS: Divalproex 250 MG DR Tablet PO SCH (20:48)
[2018-04-23] MEDS: Acetaminophen 325 MG Tablet PO PRN ×3 (06:26→17:18)
[2018-04-23] MEDS: Senna/Docusate Sodium 8.6/50 MG Tablet PO SCH ×2 (08:11→20:51)
[2018-04-23] MEDS: LORazepam 1 MG Tablet PO PRN (08:11)
[2018-04-23] MEDS: Divalproex 250 MG DR Tablet PO SCH ×2 (08:11→20:50)
[2018-04-23] MEDS: Sertraline 100 MG Tablet PO SCH (08:12)
[2018-04-23 08:25] LABS: Anion Gap 7 meq/L (5-15); Blood Urea Nitrogen 9 mg/dL (7-18); Calcium 8.5 mg/dL (8.5-10.1); Carbon Dioxide 30.4 meq/L (21.0-32.0); Chloride 106 meq/L (98-107); Cholesterol 131 mg/dL (120-200); Glomerular Filtration Rate Greater Than 89 mL/min (>89); Glucose,Random 77 mg/dL (74-106); Potassium 3.9 meq/L (3.5-5.1); Sodium 143 meq/L (136-145); Triglycerides 73 mg/dL (42-150)
[2018-04-23 08:28] LABS: Chol/HDL Ratio 3.91 Ratio; HDL Cholesterol 33.5 mg/dL (40.0-60.0); LDL Cholesterol,Calculated 83 mg/dL (0-99)
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
[2018-04-23 12:53] LABS: Hemoglobin A1c 5.3 % (4.3-6.0)
--- NOTE | 2018-04-23 15:17 | XR ---
EXAM DATE: 04/23/2018 3:06 PM EDT AGE/SEX: 22 years / Male INDICATIONS: Right hand, 5th digit pain after punching wall. CLINICAL DATA: This is the patient's initial encounter. Patient reports that signs and symptoms have been present for 3 days and indicates a pain score of 10/10. MEDICAL/SURGICAL HISTORY: None. None. COMPAR[place]: [facility] [place] ([id number] 01/26/2018. . FINDINGS: There is a transverse mildly displaced, mildly impacted fracture through the base of the fifth metaca rpal. Bone density is normal and joint space widths are intact. CONCLUSION: Fifth metacarpal fracture. Electronically signed by: Gagan Velazco MD 04/23/2018 3:16 PM EDT
--- NOTE | 2018-04-23 15:22 | XR ---
EXAM DATE: 04/23/2018 3:08 PM EDT AGE/SEX: 22 years / Male INDICATIONS: Right medial wrist pain after punching wall. CLINICAL DATA: This is the patient's initial encounter. Patient reports that signs and symptoms have been present for 3 days and indicates a pain score of 10/10. MEDICAL/SURGICAL HISTORY: None. None. COMPARISON: . FINDINGS: Bony structures are intact and in normal alignment. Joints are intact without dislocation or signifi cant arthropathy. Osseous density is normal. Soft tissues are unremarkable. No radiopaque foreign bodies seen. CONCLUSION: Negative examination of the wrist. Electronically signed by: Tristen Winn MD 04/23/2018 3:21 PM EDT
[2018-04-23] MEDS: LORazepam 0.5 MG Tablet PO PRN (17:08)
[2018-04-23] MEDS ORDERED: LORazepam 0.5 MG Tablet PO ONE (19:15)
[2018-04-23] MEDS ORDERED: QUEtiapine 100 MG Tablet PO SCH (21:00)
[2018-04-24] MEDS: Sertraline 100 MG Tablet PO SCH (08:29)
[2018-04-24] MEDS: Divalproex 250 MG DR Tablet PO SCH ×2 (08:29→20:28)
[2018-04-24] MEDS: Acetaminophen 325 MG Tablet PO PRN ×3 (08:29→17:52)
[2018-04-24] MEDS: LORazepam 1 MG Tablet PO PRN (08:29)
[2018-04-24] MEDS: Senna/Docusate Sodium 8.6/50 MG Tablet PO SCH ×2 (08:31→20:29)
[2018-04-24 08:59] LABS: Baso % (Auto) 0.3 % (0.0-2.0); Eos % (Auto) 0.3 % (0.0-4.0); Hemoglobin 15.3 gm/dL (13.0-17.0); Lymph # (Auto) 2.3 th/mm3 (1.0-4.8); Lymph % (Auto) 29.7 % (9.0-44.0); Mean Corpuscular HGB Conc 33.2 % (32.0-36.0); Mean Corpuscular Hemoglobin 32.8 pg (27.0-34.0); Mean Corpuscular Volume 98.6 fL (80.0-100.0); Mean Platelet Volume 8.4 fL (7.0-11.0); Mono # (Auto) 0.5 th/mm3 (0.0-0.9); Neut # (Auto) 4.8 th/mm3 (1.8-7.7); Neut % (Auto) 62.7 % (16.0-70.0); Platelet Count 396 th/mm3 (150-450); Red Blood Count 4.66 mil/mm3 (4.50-5.90); Red Cell Distribution Width 14.3 % (11.6-17.2); White Blood Count 7.7 th/mm3 (4.0-11.0)
[2018-04-24 09:23] LABS: Albumin 4.1 g/dL (3.4-5.0)
[2018-04-24 09:28] LABS: Total Protein 7.5 g/dL (6.4-8.2)
--- NOTE | 2018-04-24 15:30 | P.PNPSY ---
Subjective Remarks: Patient seen for follow, chart reviewed. Discussion nursing staff reported the patient noted to be anxious, continues report some pain in right hand. Patient was found participating group noted become cooperative. Patient states that he has some sleep difficulty being "off and on" reports having visited by mother which "did not go that great", reporting continued anxiety throughout the day but his mood in general has been "okay". Patient denies any perceptional services, denies any suicidal ideation or homicidal ideation at this time. X- ray of hand shows fifth metacarpal fracture, no acute fracture in right wrist. Review of Systems All other systems reviewed negative except as stated in HPI Mental Status Examination Appearance: Disheveled Consciousness: Alert Orientation: x4 Motor Activity: Normal gait Speech: Speech impediment Language: Adequate Fund of Knowledge: Adequate Attention and Concentration: Adequate Memory: Unremarkable Mood: Anxious Affect: Anxious Thought Process & Associations: Intact Thought Content: Other ([place]) Hallucination Type: None Delusion Type: None Suicidal Ideation: Yes (Denies today) Suicidal Plan: No Suicidal Intention: No Homicidal Ideation: No Homicidal Plan: No Homicidal Intention: No Insight: Poor Judgment: Impulsive Assessment and Plan - Assessment (1) Adjustment disorder with mixed disturbance of emotions and conduct Code(s): F43.25 - Adjustment disorder with mixed disturbance of emotions and conduct Status: Acute - Plan Plan: Patient continues to report feeling anxious throughout the day, did not have the visit yesterday with mother. We will start BuSpar 5 mg p.o. 3 times daily for anxiety, will decrease quetiapine to 100 mg p.o. at bedtime for mood stabilization and for depression. Continue rest of medications. We will consult hand surgery for recent imaging report of fifth metacarpal fracture. Continue to monitor mood and behavior. Discharge planning in progress. Justification for Continued Inpatient Stay: At risk for further decompensation if at lower level of care
[2018-04-24] MEDS: QUEtiapine 100 MG Tablet PO SCH (20:29)
--- NOTE | 2018-04-24 21:47 | ECG ---
Date Performed: 04/23/2018 Time Performed: 13:18:28 PTAGE: 22 years EKG: SINUS BRADYCARDIA BORDERLINE ECG PREVIOUS TRACING : 10/08/2017 03.02 Since the previous tracing, no significant change noted DOCTOR: Howard Serrano Interpretating Date/Time 04/24/2018 21:46:08
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
[2018-04-25] MEDS: Acetaminophen 325 MG Tablet PO PRN ×3 (05:16→20:12)
[2018-04-25] MEDS: Senna/Docusate Sodium 8.6/50 MG Tablet PO SCH ×2 (08:19→21:45)
[2018-04-25] MEDS: Divalproex 250 MG DR Tablet PO SCH ×2 (08:19→20:12)
[2018-04-25] MEDS: Sertraline 100 MG Tablet PO SCH (08:19)
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
[2018-04-25] MEDS: QUEtiapine 100 MG Tablet PO SCH (20:12)
[2018-04-26] MEDS: Acetaminophen 325 MG Tablet PO PRN ×3 (06:10→18:38)
[2018-04-26] MEDS: Divalproex 250 MG DR Tablet PO SCH ×2 (09:15→21:35)
[2018-04-26] MEDS: Senna/Docusate Sodium 8.6/50 MG Tablet PO SCH ×2 (09:16→22:05)
[2018-04-26] MEDS: Sertraline 100 MG Tablet PO SCH (09:17)
--- NOTE | 2018-04-26 14:39 | P.PNPSY ---
Subjective Remarks: Reviewed electronic medical records and discussed case with staff. Follow-up was conducted in the patient's room. He continues to report feeling extremely anxious. He states that he did not sleep really well and was "up and down all night". He does report that his appetite is good. He continues to maintain his "little bit depressed but much more anxious". Staff report there is been no behavioral issues with hi. He was observed out in the milieu and interacting with the other patients in an appropriate manner. Upon seeing me he ran to his room closed the door got bad and pulled the covers over his head. When asked why he done this he responded "because of my anxiety". Mental Status Examination Appearance: Disheveled Consciousness: Alert Orientation: x4 Motor Activity: Normal gait Speech: Speech impediment Language: Adequate Fund of Knowledge: Adequate Attention and Concentration: Adequate Memory: Unremarkable Mood: Anxious Affect: Anxious Thought Process & Associations: Intact Thought Content: Other ([place]) Hallucination Type: None Delusion Type: None Suicidal Ideation: Yes (Denies today) Suicidal Plan: No Suicidal Intention: No Homicidal Ideation: No Homicidal Plan: No Homicidal Intention: No Insight: Poor Judgment: Impulsive Assessment and Plan - Assessment (1) Depression Code(s): F32.9 - Major depressive disorder, single episode, unspecified Status : Acute (2) Anxiety Code(s): F41.9 - Anxiety disorder, unspecified Status: Acute - Plan Plan: Continue with current treatment plan. Patient continues to report being anxious although this may be more behavioral at this point. Justification for Continued Inpatient Stay: Moving this patient to a less restrictive environment would likely result in decompensation.
[2018-04-26] MEDS: QUEtiapine 100 MG Tablet PO SCH (21:35)
[2018-04-27] MEDS: Sertraline 100 MG Tablet PO SCH (08:48)
[2018-04-27] MEDS: Divalproex 250 MG DR Tablet PO SCH ×2 (08:49→20:01)
[2018-04-27] MEDS: Senna/Docusate Sodium 8.6/50 MG Tablet PO SCH ×2 (08:50→20:02)
[2018-04-27] MEDS: Ibuprofen 600 MG Tablet PO PRN ×2 (10:41→20:02)
--- NOTE | 2018-04-27 12:37 | P.PNPSY ---
Subjective Remarks: Patient was seen and case discussed with nursing. Patient admits to having been in special education classes. He is hyperverbal pressured and is complaining of anxiety. Thought processes loose and disorganized. Nursing notices and talking to himself throughout the day. He does deny suicidal or homicidal ideation intent or plan Mental Status Examination Appearance: Disheveled Consciousness: Alert Orientation: x4 Motor Activity: Normal gait Speech: Speech impediment Language: Adequate Fund of Knowledge: Adequate Attention and Concentration: Adequate Memory: Unremarkable Mood: Anxious Affect: Anxious Thought Process & Associations: Intact Thought Content: Other ([place]) Hallucination Type: None Delusion Type: None Suicidal Ideation: Yes (Denies today) Suicidal Plan: No Suicidal Intention: No Homicidal Ideation: No Homicidal Plan: No Homicidal Intention: No Insight: Poor Judgment: Impulsive Assessment and Plan - Assessment (1) Adjustment disorder with mixed disturbance of emotions and conduct Code(s): F43.25 - Adjustment disorder with mixed disturbance of emotions and conduct Status: Acute - Plan Plan: Continue current treatment plan Justification for Continued Inpatient Stay: Patient would decompensate in a less restrictive setting
[2018-04-27] MEDS: LORazepam 1 MG Tablet PO PRN (12:38)
[2018-04-27] MEDS: LORazepam 0.5 MG Tablet PO PRN (18:03)
[2018-04-27] MEDS: QUEtiapine 100 MG Tablet PO SCH (20:01)
[2018-04-28] MEDS: Sertraline 100 MG Tablet PO SCH (08:37)
[2018-04-28] MEDS: Divalproex 250 MG DR Tablet PO SCH ×2 (08:38→20:55)
[2018-04-28] MEDS: Ibuprofen 600 MG Tablet PO PRN ×2 (08:45→17:01)
--- NOTE | 2018-04-28 09:30 | P.PNPSY ---
Subjective Remarks: Patient was seen and case discussed with nursing. Patient had a productive conversation with his mother. He described his mood today is "so-so." He does contract for safety and denies suicidal or homicidal ideation intent or plan. He is largely seclusive to self. Intellectual dysfunction is evident. Compliant with his medications and behaving well on the unit Mental Status Examination Appearance: Disheveled Consciousness: Alert Orientation: x4 Motor Activity: Normal gait Speech: Speech impediment Language: Adequate Fund of Knowledge: Adequate Attention and Concentration: Adequate Memory: Unremarkable Mood: Anxious Affect: Anxious Thought Process & Associations: Intact Thought Content: Other ([place]) Hallucination Type: None Delusion Type: None Suicidal Ideation: Yes (Denies today) Suicidal Plan: No Suicidal Intention: No Homicidal Ideation: No Homicidal Plan: No Homicidal Intention: No Insight: Poor Judgment: Impulsive Assessment and Plan - Assessment (1) Adjustment disorder with mixed disturbance of emotions and conduct Code(s): F43.25 - Adjustment disorder with mixed disturbance of emotions and conduct Status: Acute - Plan Plan: Continue current treatment plan Justification for Continued Inpatient Stay: Patient would decompensate in a less restrictive setting
[2018-04-28] MEDS: Senna/Docusate Sodium 8.6/50 MG Tablet PO SCH ×3 (10:13→20:56)
[2018-04-28] MEDS: LORazepam 0.5 MG Tablet PO PRN (10:44)
[2018-04-28] MEDS: QUEtiapine 100 MG Tablet PO SCH (20:55)
[2018-04-29] MEDS: Ibuprofen 600 MG Tablet PO PRN ×3 (08:35→21:25)
[2018-04-29] MEDS: Sertraline 100 MG Tablet PO SCH (08:36)
[2018-04-29] MEDS: Divalproex 250 MG DR Tablet PO SCH ×2 (08:36→20:36)
[2018-04-29] MEDS: Senna/Docusate Sodium 8.6/50 MG Tablet PO SCH ×2 (08:37→20:36)
--- NOTE | 2018-04-29 13:40 | P.PNPSY ---
Subjective Remarks: Reviewed electronic medical records and discussed case with staff. Follow-up was conducted in the patient's room. He reports that he still feels "depressed, anxious, and is experiencing panic attacks. I have observed him on multiple occasions out in the millieu interacting with others. I question if his reporting of these symptoms is drug seeking behavior. Today, he mentioned that "narcotics" help him. He reports difficulty sleeping, but states that he has a good appetite. Mental Status Examination Appearance: Disheveled Consciousness: Alert Orientation: x4 Motor Activity: Normal gait Speech: Speech impediment Language: Adequate Fund of Knowledge: Adequate Attention and Concentration: Adequate Memory: Unremarkable Mood: Anxious Affect: Anxious Thought Process & Associations: Intact Thought Content: Other ([place]) Hallucination Type: None Delusion Type: None Suicidal Ideation: Yes (Denies today) Suicidal Plan: No Suicidal Intention: No Homicidal Ideation: No Homicidal Plan: No Homicidal Intention: No Insight: Poor Judgment: Impulsive Assessment and Plan - Assessment (1) Depression Code(s): F32.9 - Major depressive disorder, single episode, unspecified Status : Acute (2) Anxiety Code(s): F41.9 - Anxiety disorder, unspecified Status: Acute - Plan Plan: Patient will be reevaluated tomorrow by the attending psychiatrist. Continue with current treatment plan. Justification for Continued Inpatient Stay: Moving this patient to a less restrictive environment would likely result in decompensation.
[2018-04-29] MEDS: QUEtiapine 100 MG Tablet PO SCH (20:37)
[2018-04-30 05:47] VITALS: BP 109/56; PULSE 92; RESP 16; TEMP 97.9; O2SAT 99
[2018-04-30] MEDS: Ibuprofen 600 MG Tablet PO PRN (08:08)
[2018-04-30] MEDS: Sertraline 100 MG Tablet PO SCH (08:10)
[2018-04-30] MEDS: Divalproex 250 MG DR Tablet PO SCH (08:10)
[2018-04-30] MEDS: Senna/Docusate Sodium 8.6/50 MG Tablet PO SCH (08:10)
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
== END 2018-04-30 12:45 | disposition home or self-care (01) ==
LOC: NEPJ 21:48 → NEDA 04-22 10:23 → H260 04-22 14:31
PROVIDERS: ADMIT Student in an Organized Health Care Education/Training Program; ATTEND Student in an Organized Health Care Education/Training Program

== ENCOUNTER 2018-07-17 18:38 | Inpatient (IN) ==
[2018-07-17 19:36] LABS: Baso % (Auto) 0.4 % (0.0-2.0); Eos # (Auto) 0.1 th/mm3 (0.0-0.4); Eos % (Auto) 0.8 % (0.0-4.0); Hemoglobin 15.3 gm/dL (13.0-17.0); Lymph # (Auto) 3.2 th/mm3 (1.0-4.8); Lymph % (Auto) 37.8 % (9.0-44.0); Mean Corpuscular Hemoglobin 33.5 pg (27.0-34.0); Mean Corpuscular Volume 98.5 fL (80.0-100.0); Mean Platelet Volume 8.7 fL (7.0-11.0); Mono # (Auto) 0.6 th/mm3 (0.0-0.9); Mono % (Auto) 6.9 % (0.0-8.0); Neut # (Auto) 4.6 th/mm3 (1.8-7.7); Neut % (Auto) 54.1 % (16.0-70.0); Platelet Count 375 th/mm3 (150-450); Red Blood Count 4.57 mil/mm3 (4.50-5.90); Red Cell Distribution Width 13.8 % (11.6-17.2); White Blood Count 8.5 th/mm3 (4.0-11.0)
[2018-07-17 19:46] LABS: Amphetamine Screen,Urine Neg (Neg); Barbiturate Screen,Urine Neg (Neg); Cannabinoid Screen,Urine Pos (Neg); Cocaine Screen,Urine Neg (Neg)
[2018-07-17 19:47] LABS: Opiate Screen,Urine Neg (Neg)
[2018-07-17 20:02] LABS: Albumin 4.1 g/dL (3.4-5.0); Anion Gap 6 meq/L (5-15); Aspartate Aminotransferase 16 U/L (15-37); Blood Urea Nitrogen 8 mg/dL (7-18); Carbon Dioxide 27.8 meq/L (21.0-32.0); Chloride 109 meq/L (98-107); Glomerular Filtration Rate Greater Than 89 mL/min (>89); Glucose,Random 72 mg/dL (74-106); Magnesium 2.2 mg/dL (1.5-2.5); Potassium 4.3 meq/L (3.5-5.1); Sodium 143 meq/L (136-145)
[2018-07-17 20:03] LABS: Alanine Aminotransferase 22 U/L (12-78)
[2018-07-17 20:11] LABS: Alkaline Phosphatase 79 U/L (45-117); Thyroid Stimulating Hormone 0.699 uIU/mL (0.358-3.740); Total Protein 7.6 g/dL (6.4-8.2)
[2018-07-17] MEDS ORDERED: Aluminum/Magnesium/Simethacone Susp 30 ML UDC PO PRN (21:32)
[2018-07-18 08:27] LABS: Chol/HDL Ratio 3.34 Ratio; HDL Cholesterol 42.1 mg/dL (40.0-60.0)
[2018-07-18] MEDS ORDERED: Divalproex 250 MG DR Tablet PO SCH (09:00)
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
[2018-07-18 12:13] LABS: Hemoglobin A1c 5.3 % (4.3-6.0)
[2018-07-18] MEDS: Gabapentin 300 MG Capsule PO SCH ×2 (12:21→17:50)
[2018-07-18] MEDS: Sertraline 100 MG Tablet PO SCH (12:21)
[2018-07-18] MEDS ORDERED: QUEtiapine 100 MG Tablet PO SCH (21:00)
[2018-07-18] MEDS: Melatonin 5 MG Tablet PO PRN (21:08)
[2018-07-19] MEDS: Gabapentin 300 MG Capsule PO SCH ×2 (08:53→18:19)
[2018-07-19] MEDS: Sertraline 100 MG Tablet PO SCH (08:53)
[2018-07-19] MEDS: Melatonin 5 MG Tablet PO PRN (21:09)
[2018-07-19] MEDS: QUEtiapine 100 MG Tablet PO SCH (21:09)
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
--- NOTE | 2018-07-19 23:44 | CT ---
EXAM DATE: 07/19/2018 11:32 PM EST AGE/SEX: 23 years / Male INDICATIONS: Dizziness. CLINICAL DATA: This is the patient's initial encounter. Patient reports that signs and symptoms have been present for 1 day and indicates a pain score of 0/10. MEDICAL/SURGICAL HISTORY: None. None. RADIATION DOSE: 34.80 CTDI (mGy) COMPARISON: No prior exams available for comparison. TECHNIQUE: CT of the head without contrast. Using automated exposure control and adjustment of the mA and/or kV according to patient size, radiation dose was kept as low as reasonably achievable to ob tain optimal diagnostic quality images. DICOM format image data is available electronically for revi ew and comparison. FINDINGS: Cerebrum: The ventricles are normal for age. No evidence of midline shift, mass lesion, hemorrhage or acute infarction. No extraaxial fluid collections are seen. Posterior Fossa: The cerebellum and brainstem are intact. The 4th ventricle is midline. The cerebe llopontine angle is unremarkable. Extracranial: The visualized portion of the orbits is intact. Skull: The calvaria is intact. No evidence of skull fracture. CONCLUSION: 1. No acute intracranial abnormalities. . Electronically signed by: Yoan Eubanks MD 07/19/2018 11:42 PM EST
[2018-07-20] MEDS: Sertraline 100 MG Tablet PO SCH (08:30)
[2018-07-20] MEDS: Gabapentin 300 MG Capsule PO SCH ×4 (08:30→18:05)
[2018-07-20] MEDS: Acetaminophen 325 MG Tablet PO PRN (08:32)
--- NOTE | 2018-07-20 18:38 | P.PNPSY ---
Subjective Remarks: Reviewed electronic medical records and discussed case with staff. Follow-up was conducted in the patient's room with MELYSSA Curry present. Patient was observed prior to the follow-up pacing up-and-down the halls and staring at this provider through the window at the nurses station he had when I found him in his room he immediately launched into a tail of high anxiety and stated that his medicine is not working very well. He volunteered "my anxiety is a 10". He went on to state that he "overeats a lot" at which time he began laughing and smiling. Mental Status Examination Appearance: Appropriate Consciousness: Alert Orientation: x4 Motor Activity: Normal gait Speech: Speech impediment Language: Adequate Fund of Knowledge: Inadequate Attention and Concentration: Adequate Memory: Unremarkable Mood: Sad, Anxious Affect: Sad, Anxious Thought Process & Associations: Intact, Linear Thought Content: Appropriate Hallucination Type: None Delusion Type: None Suicidal Ideation: No Suicidal Plan: No Suicidal Intention: No Homicidal Ideation: No Homicidal Plan: No Homicidal Intention: No Insight: Fair Judgment: Impulsive Assessment and Plan - Assessment (1) Adjustment disorder Code(s): F43.20 - Adjustment disorder, unspecified Status: Acute - Plan Plan: Patient will be reevaluated by the attending psychiatrist. Continue with current treatment plan. Justification for Continued Inpatient Stay: Moving this patient to a less restrictive environment would likely result in decompensation.
[2018-07-20] MEDS: Melatonin 5 MG Tablet PO PRN (20:08)
[2018-07-20] MEDS: QUEtiapine 100 MG Tablet PO SCH (20:08)
[2018-07-21] MEDS: Acetaminophen 325 MG Tablet PO PRN (08:19)
[2018-07-21] MEDS: Sertraline 100 MG Tablet PO SCH (08:19)
[2018-07-21] MEDS: Gabapentin 300 MG Capsule PO SCH ×3 (08:19→17:06)
--- NOTE | 2018-07-21 13:03 | P.PNPSY ---
Subjective Remarks: Reviewed electronic medical record and discussed with nursing staff. Patient states she has alot of anxiety and insomnia. Melatonin is not helping her with sleep. Will add atarax and benadryl onto current medication management to give the nursing staff more options to help patient. Patient is engaging with other patients. Appears anxious. Denies SI/HI. Review of Systems All other systems reviewed negative except as stated in HPI Mental Status Examination Appearance: Appropriate Consciousness: Alert Orientation: x4 Motor Activity: Normal gait Speech: Speech impediment Language: Adequate Fund of Knowledge: Inadequate Attention and Concentration: Adequate Memory: Unremarkable Mood: Sad, Anxious Affect: Sad, Anxious Thought Process & Associations: Intact, Linear Thought Content: Appropriate Hallucination Type: None Delusion Type: None Suicidal Ideation: No Suicidal Plan: No Suicidal Intention: No Homicidal Ideation: No Homicidal Plan: No Homicidal Intention: No Insight: Fair Judgment: Impulsive Assessment and Plan - Assessment (1) Adjustment disorder with mixed disturbance of emotions and conduct Code(s): F43.25 - Adjustment disorder with mixed disturbance of emotions and conduct Status: Acute - Plan Plan: Patient will be reevaluated by the attending psychiatrist. Continue with current treatment plan. Justification for Continued Inpatient Stay: Moving patient to a less restrictive environment may result in her decompensation.
[2018-07-21 17:44] VITALS: O2SAT 98
[2018-07-21] MEDS: QUEtiapine 100 MG Tablet PO SCH (20:46)
[2018-07-22 06:30] VITALS: BP 104/62; PULSE 81; RESP 19; TEMP 97.4
[2018-07-22] MEDS: Sertraline 100 MG Tablet PO SCH (08:32)
[2018-07-22] MEDS: Gabapentin 300 MG Capsule PO SCH ×2 (08:32→14:00)
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
== END 2018-07-22 16:52 ==
LOC: NEDAMB 18:38 → NEDA 21:31 → H260 23:56
PROVIDERS: ADMIT Student in an Organized Health Care Education/Training Program; ATTEND Student in an Organized Health Care Education/Training Program

== ENCOUNTER 2018-08-15 19:52 | Inpatient (IN) ==
--- NOTE | 2018-08-16 02:36 | ED ---
HPI General Chief Complaint: Psychiatric Symptoms Stated Complaint: psych eval/vol Time Seen by Provider: 08/16/18 01:31 Source: patient Mode of arrival: ambulatory Limitations: no limitations History of Present Illness HPI Narrative: 23-year-old white male presents emergency department on a voluntary basis for psychological evaluation. Patient states that he is not taking any medications currently. He states that he has been prescribed Seroquel and Vistaril in the past for anxiety. He alleges that he is been having auditory hallucinations persecution as well as advising him to cut himself. Patient states that he has not acted on these hallucinations. He does state that he feels very anxious. He denies any alcohol or drugs. He does smoke about a pack a day. He admits to breaking his right hand in the past few weeks. He has not followed up with an orthopedist yet. Related Data Home Medications Medication Instructions Recorded Confirmed hydroxyzine HCl 25 mg PO TID-QID PRN 08/06/18 08/15/18 Previous Rx's Medication Instructions Recorded gabapentin [Neurontin] 300 mg PO TID 30 Days #90 cap 07/22/18 quetiapine 150 mg PO HS 30 Days #45 tab 07/22/18 sertraline 100 mg PO DAILY 30 Days #30 tab 07/22/18 ibuprofen 800 mg PO Q6H PRN #30 tab 08/06/18 Allergies Allergy/AdvReac Type Severity Reaction Status Date / Time trazodone Allergy Severe Anaphylaxis Verified 08/06/18 15:01 Review of Systems ROS: all other systems reviewed are negative [facility] Medical History Medical History Depression (Acute) Panic attack (Acute) Anxiety (Acute) Autism (Acute) Bipolar disorder (Acute) Surgical History Surgical History No history of previous surgery (Acute) Social History Social History Substance History: No History of Abuse Second Hand Smoke Exposure: Yes Smoking Status: Current every day smoker Tobacco Type: Cigarettes How Often Do You Have a Drink Containing Alcohol: 2 to 4 times a month Hx Recent Travel: No Recent Travel in [facility] within the Last 8 Weeks: No Recent Out of Country Travel within the Last 8 Weeks: No Immunization History Tetanus Immunization: <5 Years Tetanus Immunization Year if Known: 2013 Exam Narrative Exam Narrative: GENERAL: Well-nourished, well-developed patient. Patient appears disheveled SKIN: Warm and dry. HEAD: Normocephalic and atraumatic. EYES: No scleral icterus. No injection or drainage. ENT: No nasal drainage noted. Mucous membranes pink. Airway patent. NECK: Supple, trachea midline. Moves head freely without obvious discomfort. CARDIOVASCULAR: Regular rate and rhythm without murmurs, gallops, or rubs. RESPIRATORY: Breath sounds equal bilaterally. No accessory muscle use. GASTROINTESTINAL: Abdomen soft, non-tender, nondistended. EXTREMITIES: No cyanosis or edema. Patient has a splint on his right hand which is falling off. BACK: Nontender without obvious deformity. No CVA tenderness. NEURO: Patient is alert and oriented. no sensorimotor deficits. Nonfocal. Normal speech. PSYCH: No delusions. No auditory or visual hallucinations. Course Initial Documented Vital Signs Temperature 97.8 F 08/15/18 20:01 Pulse Rate 68 08/15/18 20:01 Respiratory Rate 16 08/15/18 20:01 Blood Pressure 111/59 L 08/15/18 20:01 Pulse Oximetry 99 08/15/18 20:01 Last Documented Vital Signs Temperature 97.8 F 08/15/18 20:01 Pulse Rate 68 08/15/18 20:01 Respiratory Rate 16 08/15/18 20:01 Blood Pressure 111/59 L 08/15/18 20:01 Pulse Oximetry 99 08/15/18 20:01 Medical Decision Making MDM Narrative Medical decision making narrative: The patient will stay and see the psychiatrist in the morning. We will reapply his ulnar gutter splint Medical Screen Exam Complete: Yes Emergency Medical Condition: Yes Differential Diagnosis Differential Diagnosis: MDM: High Differential diagnoses: Schizophrenia, schizoaffective disorder, bipolar, anxiety, depression, adjustment reaction, mood disorder NOS, ODD, depressive disorder , psychosis NOS, substance induced mood disorder, DMDD, Asperger syndrome, infection,electrolyte abnormality, malingering. Mental health screening discussed with the patient. Psychiatric screen ordered. Discharge Plan Discharge Disposition Patient Disposition: Sign Out(ED Internal Use Only) Discharge Condition Condition: Stable Physicians Team ED Provider: Raul Johnson ED Midlevel Provider: Yoan Mclain Primary Care Provider: UNKNOWN, Rxs /Orders / Referrals /Forms Prescriptions: No Action quetiapine 100 mg Tablet 150 mg PO HS 30 Days Qty: 45 RF: 0 gabapentin [Neurontin] 300 mg Capsule 300 mg PO TID 30 Days Qty: 90 RF: 0 sertraline 100 mg Tablet 100 mg PO DAILY 30 Days Qty: 30 RF: 0 hydroxyzine HCl 25 mg Tablet 25 mg PO TID-QID PRN (Reason: Anxiety) RF: 0 ibuprofen 800 mg tablet 800 mg PO Q6H PRN (Reason: pain) Qty: 30 RF: 0 Status ED Status: With Doctor
[2018-08-16] MEDS ORDERED: Aluminum/Magnesium/Simethacone Susp 30 ML UDC PO PRN (10:25)
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
[2018-08-16] MEDS: Sertraline 100 MG Tablet PO SCH (13:42)
[2018-08-16] MEDS: Gabapentin 300 MG Capsule PO SCH ×2 (13:42→17:18)
[2018-08-16] MEDS: Acetaminophen 325 MG Tablet PO PRN (17:18)
[2018-08-16] MEDS: QUEtiapine 100 MG Tablet PO SCH (21:27)
[2018-08-17 07:21] LABS: Anion Gap 6 meq/L (5-15); Blood Urea Nitrogen 17 mg/dL (7-18); Calcium 8.2 mg/dL (8.5-10.1); Carbon Dioxide 28.1 meq/L (21.0-32.0); Chloride 109 meq/L (98-107); Cholesterol 122 mg/dL (120-200); Glomerular Filtration Rate Greater Than 89 mL/min (>89); Glucose,Random 71 mg/dL (74-106); Potassium 3.9 meq/L (3.5-5.1); Sodium 143 meq/L (136-145); Triglycerides 49 mg/dL (42-150)
[2018-08-17 07:24] LABS: Chol/HDL Ratio 3.34 Ratio; HDL Cholesterol 36.5 mg/dL (40.0-60.0); LDL Cholesterol,Calculated 76 mg/dL (0-99)
[2018-08-17] MEDS: Gabapentin 300 MG Capsule PO SCH ×3 (08:42→18:38)
[2018-08-17] MEDS: Sertraline 100 MG Tablet PO SCH (08:42)
[2018-08-17 09:51] LABS: Hemoglobin A1c 5.6 % (4.3-6.0)
--- NOTE | 2018-08-17 13:08 | P.HPPSY ---
Provisional Diagnosis Admission Date: August 16, 2018 10:22 Competence Certification of Person's Competence To Provide Express and Informed Consent I have personally examined Bertin Worthy, a person being served at [facility] on, August 17, 2018 1301. Express and informed consent means consent voluntarily given in writing, by a competent person, after sufficient explanation and disclosure of the subject matter involved to enable the person to make a knowing and willful decision without any element of force, fraud, deceit, duress, or other form of constraint or coercion. This person is 18 years of age or older, is not now known to be incompetent to consent to treatment with a guardian advocate, and does not have a health care surrogate or proxy currently making medical treatment decisions. I have found this person to be one of the following: [X] Competent to provide express and informed consent, as defined above, for voluntary admission to this facility and is competent to provide express and informed consent for treatment. He/she has the consistent capacity to make well reasoned, willful, and knowing decisions concerning his or her medical or mental health treatment. The person fully and consistently understands the purpose of the admission for examination/placement and is fully capable of personally exercising all rights assured [place] [] Incompetent to provide express and informed consent to voluntary admission, and this is incompetent to provide express and informed consent to treatment. The person must be transferred to involuntary status and a petition for a guardian advocate filed with the Circuit Court. [] Refusing to provide express and informed consent to voluntary admission but is competent to provide express and informed consent for treatment. The person must be discharged or transferred to involuntary status. Form shall be completed within 24 hours of a person's arrival at the receiving facility and filed in the clinical record of each person: 1. Admitted on a voluntary basis 2. Permitted to provide express and informed consent to his/her own treatment 3. Allowed to transfer from involuntary to voluntary status 4. Prior to permitting a person to consent to his or her own treatment after having been previously found incompetent to consent to treatment. History of Present Illness Capacity: Has capacity Chief Complaint: suicidal ideation History of Present Illness: Patient was seen and case discussed with nursing. 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 Patient has multiple admissions to the psychiatric unit and has an extensive history of mood and psychotic disorders. Patient's chief complaint is bothersome auditory hallucinations that are making fun of him and telling him to hurt himself. He is able to ignore them and has no intent of hurting himself on this unit. Denies suicidal or homicidal ideation plan. Per record he has not been taking his medications. Sleep has been poor. He has been recently irritable and punched an object and broke his hand and is wearing a cast. Past psych: Multiple admissions to the [facility]. Patient has a history of suicide attempts including overdosing on medication and cutting himself. He says his last attempt was 3 months ago. He sees a PCP for psychiatric medications. Past medical: See chart Past Famhx: Patient says his dad has "something." Past Social: Patient has a history of cannabis use. He says he is used his pain pills in the past more so than he should have. Denies alcohol use. Does not have any kids he is not . Patient says he has been in special education most of his life and is currently on disability. - Inpatient Certification I certify that the inpatient services were ordered in accordance with Medicare regulations governing the order. This includes certification that hospital inpatient services are reasonable and necessary and in the case of services not specified as inpatient-only under 42 CFR 419.22(n), that they are appropriately provided as inpatient services in accordance to with the 2-midnight benchmark under 43 CFR 412.3(e) I certify that inpatient psychiatric hospital services are medically necessary. Evaluation and treatment and/or diagnostic testing are expected to improve the patient's condition. The patient needs on a daily basis, active treatment furnished directly by or requiring the supervision of inpatient psychiatric facility personnel. Estimated Total Length of Stay (Days): 5 Plans for Post Hospital Care: Home Review of Systems All other systems reviewed negative except as stated in HPI [facility] - History History Provided By: Patient - Medical History Medical History: Medical History (Last Reviewed 08/17/18 @ 13:06 by Yeison Sena DO) Depression (Acute) Panic attack (Acute) Anxiety (Acute) Autism Bipolar disorder - Surgical History Surgical History: Surgical History (Last Reviewed 08/17/18 @ 13:06 by Yeison Sena DO) No history of previous surgery (Acute) - Tobacco History Second Hand Smoke Exposure: Yes Tobacco Use In Past 30 Days: Yes Smoking Status: Current every day smoker Tobacco Type: Cigarettes - Alcohol History How Often Do You Have a Drink Containing Alcohol: 2 to 4 times a month - Substance Use History Substance History: No History of Abuse - Travel History History of Recent Travel: No Recent Travel in the [place] Within the Last 8 Weeks: No Recent Travel Out of the Country Within the Last 8 Weeks: No - Immunization History Tetanus Immunization: <5 Years Tetanus Immunization Year if Known: 2013 Hx Influenza Vaccine This Season: No Medications and Allergies Active Medications: Active Medications Acetaminophen (Tylenol) 650 mg PO Q4H PRN PRN Reason: Pain 1-5 or Temp >101F Last Admin: 08/16/18 17:18 Dose: 650 mg Al Hydrox/Mg Hydrox/Simethicone (Mag-Al Plus Susp Liq) 30 ml PO Q6H PRN PRN Reason: DYSPEPSIA Al Hydroxide/Mg Hydroxide (Milk Of Magnesia Liq) 30 ml PO Q12H PRN PRN Reason: Mild Constipation Diphenhydramine HCl (Benadryl Inj) 50 mg IM HS PRN PRN Reason: INSOMNIA Gabapentin (Neurontin) 300 mg PO TID [facility] Last Admin: 08/17/18 08:42 Dose: 300 mg Hydroxyzine HCl (Atarax) 50 mg PO Q6H PRN PRN Reason: ANXIETY Last Admin: 08/16/18 17:18 Dose: 50 mg Quetiapine Fumarate (Seroquel) 150 mg PO HS [facility] Last Admin: 08/16/18 21:27 Dose: 150 mg Sertraline HCl (Zoloft) 100 mg PO DAILY [facility] Last Admin: 08/17/18 08:42 Dose: 100 mg Allergies Allergy/AdvReac Type Severity Reaction Status Date / Time trazodone Allergy Severe Anaphylaxis Verified 08/06/18 15:01 Home Medications Medication Instructions Recorded Confirmed Type hydroxyzine HCl 25 mg PO TID-QID PRN 08/06/18 08/15/18 History Results - Labs CBC & Chem 7: 08/17/18 06:08 Labs: Laboratory Results - last 24 hr 08/17/18 08/17/18 06:08 06:08 Sodium 143 Potassium 3.9 Chloride 109 H Carbon Dioxide 28.1 Anion Gap 6 BUN 17 Creatinine 0.86 Estimated GFR Greater than 89 Random Glucose 71 L Hemoglobin A1c 5.6 Calcium 8.2 L Triglycerides 49 Cholesterol 122 LDL Cholesterol, Calc 76 HDL Cholesterol 36.5 L Cholesterol/HDL Ratio 3.34 Exam Vital signs: Vital Signs 08/16/18 14:28 08/16/18 14:29 08/16/18 14:30 Temperature 98.2 F Pulse Rate 88 92 H Respiratory Rate 18 16 17 Blood Pressure 104/62 147/84 H 130/58 L Pulse Oximetry 97 99 82 L 08/16/18 17:19 08/16/18 17:53 08/17/18 06:00 Temperature 98.2 F 98 F Pulse Rate 80 81 Respiratory Rate 16 14 18 Blood Pressure 111/64 86/50 L Pulse Oximetry 97 99 Intake & Output 08/16/18 08/17/18 08/17/18 18:59 06:59 18:59 Weight 58.96 kg Other: Weight On Admission 58.96 kg Mental Status Examination Appearance: Disheveled Consciousness: Alert Orientation: x4 Motor Activity: Normal gait Speech: Speech impediment Language: Adequate Fund of Knowledge: Adequate Attention and Concentration: Adequate Memory: Unremarkable Mood: Sad, Anxious Affect: Sad, Anxious Thought Process & Associations: Logical, Goal directed Thought Content: Hallucinations Hallucination Type: Auditory Delusion Type: Other (Derogatory command) Suicidal Ideation: No Suicidal Plan: No Suicidal Intention: No Homicidal Ideation: No Homicidal Plan: No Homicidal Intention: No Insight: Fair Judgment: Impulsive Assessment and Plan - Assessment (1) Schizoaffective disorder, depressive type Code(s): F25.1 - Schizoaffective disorder, depressive type Status: Acute - Plan Plan: Patient may sign voluntary. Patient has been off his Seroquel so we will restart him at his dose of 150 and I recommend titration over the weekend. Restart Zoloft Justification for Continued Inpatient Stay: Patient would decompensate in a less restrictive setting
[2018-08-17] MEDS: Acetaminophen 325 MG Tablet PO PRN (15:54)
[2018-08-17] MEDS: QUEtiapine 100 MG Tablet PO SCH (20:08)
[2018-08-18] MEDS: Gabapentin 300 MG Capsule PO SCH ×3 (08:16→17:35)
[2018-08-18] MEDS: Acetaminophen 325 MG Tablet PO PRN (08:16)
[2018-08-18] MEDS: Sertraline 100 MG Tablet PO SCH (08:16)
--- NOTE | 2018-08-18 10:26 | P.PNPSY ---
Subjective Chief Complaint: suicidal ideation Remarks: Reviewed electronic record and discussed with nursing staff. Patient is well known to this provider as I see her on an outpatient basis. Endorses that mood is about the same and that she is frustrated because she has a fracture in her right hand that is very painful. Will add motrin for the discomfort. Patient is sleeping and eating well. Review of Systems All other systems reviewed negative except as stated in HPI Comments: frature of right wrist. s/p punching the wall. Mental Status Examination Appearance: Disheveled Consciousness: Alert Orientation: x4 Motor Activity: Normal gait Speech: Speech impediment Language: Adequate Fund of Knowledge: Adequate Attention and Concentration: Adequate Memory: Unremarkable Mood: Sad, Anxious Affect: Sad, Anxious Thought Process & Associations: Logical, Goal directed Thought Content: Hallucinations, Obsessions Hallucination Type: Auditory Delusion Type: None, Other Suicidal Ideation: No Suicidal Plan: No Suicidal Intention: No Homicidal Ideation: No Homicidal Plan: No Homicidal Intention: No Insight: Fair Judgment: Impulsive Assessment and Plan - Assessment (1) Schizoaffective disorder, depressive type Code(s): F25.1 - Schizoaffective disorder, depressive type Status: Acute - Plan Plan: 08/18/18 continue current treatment plan. 08/17/18 Patient may sign voluntary. Patient has been off his Seroquel so we will restart him at his dose of 150 and I recommend titration over the weekend. Restart Zoloft Justification for Continued Inpatient Stay: Moving patient to a less restrictive environment may result in her decompensation.
[2018-08-18] MEDS: Ibuprofen 400 MG Tablet PO PRN (10:40)
[2018-08-18] MEDS: QUEtiapine 100 MG Tablet PO SCH (20:13)
[2018-08-19] MEDS: Gabapentin 300 MG Capsule PO SCH ×3 (09:05→17:28)
[2018-08-19] MEDS: Sertraline 100 MG Tablet PO SCH (09:06)
[2018-08-19] MEDS ORDERED: Aluminum/Magnesium/Simethacone Susp 30 ML UDC PO PRN (11:58)
[2018-08-19] MEDS ORDERED: Bisacodyl 10 MG Supp RECTAL PRN (11:58)
--- NOTE | 2018-08-19 12:08 | P.PNPSY ---
Subjective Chief Complaint: suicidal ideation Remarks: Room with nurse Yanely, chart reviewed, patient compliant medication, patient discussed with nurse. Patient continues quite anxious and depressed he continues with auditory hallucinations of a command nature telling him to harm himself, cut or kill himself. He denies any alcohol or drug use with this. It appears as there is some stress with his living situation that he is attempting to make things better in that respect. He does complain of continued anxiety. I did discuss with him the need for moderation in his medication. I will add Seroquel 25 mg 8 AM noon and 4 PM. Continue other medications no change. The patient still remains depressed with auditory hallucinations of a command nature with significant suicidal risk. Review of Systems Patient wearing splint right hand wrist and forearm for a boxer's fracture right hand Mental Status Examination Appearance: Disheveled Consciousness: Alert Orientation: x4 Motor Activity: Normal gait Speech: Speech impediment Language: Adequate Fund of Knowledge: Adequate Attention and Concentration: Adequate Memory: Unremarkable Mood: Sad, Anxious Affect: Other (Decreased range and increase intensity) Thought Process & Associations: Logical, Goal directed Thought Content: Hallucinations, Obsessions Hallucination Type: Auditory (Command nature telling him to harm himself) Delusion Type: None, Paranoid Suicidal Ideation: Yes (Vague to intense responding to internal stimuli) Suicidal Plan: No Suicidal Intention: No Homicidal Ideation: No Homicidal Plan: No Homicidal Intention: No Insight: Fair Judgment: Impulsive Assessment and Plan - Assessment (1) Schizoaffective disorder, depressive type Code(s): F25.1 - Schizoaffective disorder, depressive type Status: Acute - Plan Plan: Patient remains somewhat psychotic with auditory hallucinations and suicidal ideation she medication adjustment above Justification for Continued Inpatient Stay: At this time patient with decompensated placed in a lower level of care Discharge Planning: To be determined Request Healthcare Surrogate/Guardian Advocate?: No
[2018-08-19] MEDS: QUEtiapine 25 MG Tablet PO SCH ×2 (13:07→17:28)
--- NOTE | 2018-08-19 13:55 | P.TTN ---
- Patient Problems Problems: 1. Discharge planning 2. Medication compliance 3. Knowledge deficit 4. Lack of coping skills - Progress Toward Goals Provider Present: Dr. Stephanie Guerrero (Dr. Guerrero is titrating medications, patient remains for further stabilization.) Psychiatric Counselors Present: Reynaldo Lynn Jr., [facility] (Patient will return to his residence where he lives with 2 roommates and [address].) Group Spec/RT/OT/SÁNCHEZ Present: GONZALO Espinoza (Patient attends select groups.) - Documentation Teaching Recipient: Patient
[2018-08-19] MEDS: QUEtiapine 100 MG Tablet PO SCH (20:36)
[2018-08-19] MEDS ORDERED: Senna/Docusate Sodium 8.6/50 MG Tablet PO SCH (21:00)
[2018-08-20] MEDS: Ibuprofen 400 MG Tablet PO PRN (04:46)
[2018-08-20] MEDS: Gabapentin 300 MG Capsule PO SCH ×3 (08:19→17:26)
[2018-08-20] MEDS: Sertraline 100 MG Tablet PO SCH (08:20)
--- NOTE | 2018-08-20 12:29 | P.PNPSY ---
Subjective Chief Complaint: suicidal ideation Remarks: Patient seen in his room with nurse Kerrie, chart reviewed, patient states she slept better though still complains of some intermittent voices and anxiety. He made a subtle attempt to request Klonopin which I denied. We will increase his daytime Seroquel to 50 mg 3 times a day continue H's dose no change. For now continue treatment patient states he has a place to return to when he is stabilized Review of Systems All other systems reviewed negative except as stated in HPI Mental Status Examination Appearance: Appropriate Consciousness: Alert Orientation: x4 Motor Activity: Normal gait Speech: Speech impediment Language: Adequate Fund of Knowledge: Adequate Attention and Concentration: Adequate Memory: Unremarkable Mood: Sad, Anxious Affect: Other (Decreased range and increase intensity) Thought Process & Associations: Logical, Goal directed Thought Content: Hallucinations, Obsessions Hallucination Type: Auditory (Command nature telling him to harm himself) Delusion Type: None, Paranoid (Somewhat decreased) Suicidal Ideation: Yes (Vague) Suicidal Plan: No Suicidal Intention: No Homicidal Ideation: No Homicidal Plan: No Homicidal Intention: No Insight: Fair Judgment: Impulsive Assessment and Plan - Assessment (1) Schizoaffective disorder, depressive type Code(s): F25.1 - Schizoaffective disorder, depressive type Status: Acute - Plan Plan: Patient's mood somewhat resolved but continues some subtle drug-seeking will refrain from benzodiazepines and opiates will increase daytime scheduled Seroquel 2 mg 3 times a day Justification for Continued Inpatient Stay: At this time patient with decompensated placed on a lower level of care Discharge Planning: To be determined perhaps back to his prior place of residence Request Healthcare Surrogate/Guardian Advocate?: No
[2018-08-20] MEDS: QUEtiapine 25 MG Tablet PO SCH ×2 (15:42→23:46)
[2018-08-20] MEDS: QUEtiapine 100 MG Tablet PO SCH (21:02)
[2018-08-21] MEDS: Sertraline 100 MG Tablet PO SCH (08:08)
[2018-08-21] MEDS: Gabapentin 300 MG Capsule PO SCH ×3 (08:09→17:01)
[2018-08-21] MEDS: QUEtiapine 25 MG Tablet PO SCH ×3 (08:09→16:56)
[2018-08-21] MEDS: Ibuprofen 400 MG Tablet PO PRN ×2 (08:09→16:57)
--- NOTE | 2018-08-21 11:40 | P.PNPSY ---
Subjective Chief Complaint: suicidal ideation Remarks: Patient is seen and hsu with floor staff, patient calm cooperative. Chart reviewed. Patient compliant medication. However when attempting to discuss discharge plans and follow-up he became somewhat more anxious than stating his anxiety persists the auditory hallucinations persist and is vague suicidality. I do question with the review may be some manipulation involved with this. For now though will increase at bedtime Seroquel to 200 mg. Plan on discharge patient on Thursday 08/23 Review of Systems All other systems reviewed negative except as stated in HPI Mental Status Examination Appearance: Appropriate Consciousness: Alert Orientation: x4 Motor Activity: Normal gait Speech: Speech impediment Language: Adequate Fund of Knowledge: Adequate Attention and Concentration: Adequate Memory: Unremarkable Mood: Sad, Anxious Affect: Other (Decreased range and increase intensity) Thought Process & Associations: Logical, Goal directed Thought Content: Hallucinations (Vague auditory) Hallucination Type: Auditory (States somewhat vague today) Delusion Type: None, Paranoid (Somewhat vague) Suicidal Ideation: Yes (Vague) Suicidal Plan: No Suicidal Intention: No Homicidal Ideation: No Homicidal Plan: No Homicidal Intention: No Insight: Fair Judgment: Impulsive Assessment and Plan - Assessment (1) Schizoaffective disorder, depressive type Code(s): F25.1 - Schizoaffective disorder, depressive type Status: Acute - Plan Plan: For now continue treatment please see medication adjustment above consider discharge in 48 hours Justification for Continued Inpatient Stay: At this time patient with decompensated placed on lower level of care Discharge Planning: Probable return home with friends Request Healthcare Surrogate/Guardian Advocate?: No
[2018-08-21] MEDS: Acetaminophen 325 MG Tablet PO PRN ×3 (12:12→20:42)
[2018-08-22] MEDS: Gabapentin 300 MG Capsule PO SCH ×3 (08:02→17:57)
[2018-08-22] MEDS: QUEtiapine 25 MG Tablet PO SCH ×3 (08:02→16:14)
[2018-08-22] MEDS: Sertraline 100 MG Tablet PO SCH (08:03)
[2018-08-22] MEDS: Acetaminophen 325 MG Tablet PO PRN ×2 (08:03→14:51)
[2018-08-22] MEDS: Ibuprofen 400 MG Tablet PO PRN ×2 (08:03→16:14)
--- NOTE | 2018-08-22 10:46 | P.PNPSY ---
Subjective Chief Complaint: suicidal ideation Remarks: Patient seen in his room with floor staff, chart reviewed, patient compliant medication. Patient continues to perseverate on some sleep issues though he states this is been chronic for many years. He also perseverates somewhat on his anxiety. Today again he attempted to focus on the fact that the only way his anxiety is so is by the use of Klonopin. I again refused to offer Klonopin patient showing some incongruous expression. He does not show significant aspects of anxiety by my observation. Though expresses that. I suggested he attempt more behavioral ways to control the anxiety since I was not going to be ordering him any benzodiazepine. Patient tolerated that news fairly well. Patient denies suicidality at this time. Consideration will be for discharge tomorrow to himself Review of Systems All other systems reviewed negative except as stated in HPI Mental Status Examination Appearance: Appropriate Consciousness: Alert Orientation: x4 Motor Activity: Normal gait Speech: Speech impediment Language: Adequate Fund of Knowledge: Adequate Attention and Concentration: Adequate Memory: Unremarkable Mood: Sad, Anxious (Decreased) Affect: Other (Decreased range and intensity) Thought Process & Associations: Intact, Logical, Goal directed Thought Content: Hallucinations (Denies today) Hallucination Type: Auditory (States somewhat vague today) Delusion Type: None, Paranoid (Somewhat vague) Suicidal Ideation: Yes (Denies today) Suicidal Plan: No Suicidal Intention: No Homicidal Ideation: No Homicidal Plan: No Homicidal Intention: No Insight: Fair Judgment: Impulsive Assessment and Plan - Assessment (1) Schizoaffective disorder, depressive type Code(s): F25.1 - Schizoaffective disorder, depressive type Status: Acute - Plan Plan: Patient somewhat better today denying suicidality or voices at any still about anxiety. Continues to show some subtle drug-seeking for benzodiazepines. Consider discharge tomorrow Justification for Continued Inpatient Stay: At this time patient with decompensated placed in a lower level of care Discharge Planning: Consider discharge tomorrow Request Healthcare Surrogate/Guardian Advocate?: No
[2018-08-22] MEDS ORDERED: QUEtiapine 25 MG Tablet PO ONE (16:15)
[2018-08-23 06:13] VITALS: BP 109/65; PULSE 96; RESP 16; TEMP 98; O2SAT 95
[2018-08-23] MEDS: Sertraline 100 MG Tablet PO SCH (08:30)
[2018-08-23] MEDS: Gabapentin 300 MG Capsule PO SCH (08:30)
[2018-08-23] MEDS: QUEtiapine 25 MG Tablet PO SCH ×2 (08:30→12:28)
--- NOTE | 2018-08-23 09:23 | P.DSPSY ---
Psychiatry Discharge Summary Inpatient Psychiatric care?: Yes Advance Directives: No Mental Health Advance Directive: No Health Care Proxy: No - Admission Admission Date: August 16, 2018 10:22 - Admission Diagnosis (1) Schizoaffective disorder, depressive type Code(s): F25.1 - Schizoaffective disorder, depressive type Brief History: Patient was seen and case discussed with nursing. 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 Patient has multiple admissions to the psychiatric unit and has an extensive history of mood and psychotic disorders. Patient's chief complaint is bothersome auditory hallucinations that are making fun of him and telling him to hurt himself. He is able to ignore them and has no intent of hurting himself on this unit. Denies suicidal or homicidal ideation plan. Per record he has not been taking his medications. Sleep has been poor. He has been recently irritable and punched an object and broke his hand and is wearing a cast. Past psych: Multiple admissions to the [facility]. Patient has a history of suicide attempts including overdosing on medication and cutting himself. He says his last attempt was 3 months ago. He sees a PCP for psychiatric medications. Past medical: See chart Past Famhx: Patient says his dad has "something." Past Social: Patient has a history of cannabis use. He says he is used his pain pills in the past more so than he should have. Denies alcohol use. Does not have any kids he is not . Patient says he has been in special education most of his life and is currently on disability. Tobacco Use In Past 30 Days: Yes How Often Do You Have a Drink Containing Alcohol: 2 to 4 times a month Hospital Course: Patient's hospital course was uneventful he showed compliance with medication from day 1 he was no behavioral problems. However he did not participate significantly with the milieu. There is some suicidal drug seeking primarily for benzodiazepines. However accepted redirection and medication management as I presented it. Patient now denies suicidality or homicidality voices or visions. Said he is sleeping somewhat better and his anxiety is somewhat better. At this time I feel he has reached maximum benefit of this hospitalization thus patient will be discharged today to himself he will be staying with roommates. He will follow-up stroke [facility] outpatient medication management he also has a stored [facility] community assistant in the community. He will be given a Rx times 1 month - Discharge Discharge Date: 08/23/18 - Discharge Diagnosis (1) Schizoaffective disorder, depressive type Diagnosis: Principal Code(s): F25.1 - Schizoaffective disorder, depressive type Status: Acute Discharge Disposition: Home - Discharge Instructions Discharge Diet: Regular Diet Activities You Can Perform: Regular- No Restrictions - Discharge Time > 30 minutes Mental Status Examination Appearance: Appropriate Consciousness: Alert Orientation: x4 Motor Activity: Normal gait Speech: Speech impediment Language: Adequate Fund of Knowledge: Adequate Attention and Concentration: Adequate Memory: Unremarkable Mood: Sad, Anxious (Decreased) Affect: Other (Decreased range and intensity) Thought Process & Associations: Intact, Logical, Goal directed Thought Content: Hallucinations (Denies today) Hallucination Type: Auditory (States somewhat vague today) Delusion Type: None, Paranoid (Somewhat vague) Suicidal Ideation: Yes (Denies today) Suicidal Plan: No Suicidal Intention: No Homicidal Ideation: No Homicidal Plan: No Homicidal Intention: No Insight: Fair Judgment: Impulsive Discharge/Advance Care Plan - Results Vital Signs: Last Vital Signs Temp 98.0 F 08/23/18 06:00 Pulse 96 H 08/23/18 06:00 Resp 16 08/23/18 06:00 BP 109/65 08/23/18 06:00 Pulse Ox 95 08/23/18 06:00 Lab Results: Laboratory Results Hemoglobin A1c 5.6 % (4.3-6.0) 08/17/18 06:08 Triglycerides 49 mg/dL (42-150) 08/17/18 06:08 Cholesterol 122 mg/dL (120-200) 08/17/18 06:08 LDL Cholesterol, Calc 76 mg/dL (0-99) 08/17/18 06:08 HDL Cholesterol 36.5 mg/dL (40.0-60.0) L 08/17/18 06:08 Summary of Procedures: None done Pending Results: None - Medications Number of antipsychotic medications at discharge: 1 - Discharge Care Plan Goals to Promote Your Health: * To prevent worsening of your condition and complications * To maintain your health at the optimal level Directions to Meet Your Goals: Take your medications as prescribed Follow your dietary instruction Follow activity as directed Keep your appointments as scheduled Take your immunizations and boosters as scheduled If your symptoms worsen call your PCP, if no PCP go to Urgent Care Center or Emergency Room For 19/03 questions related to your inpatient stay or results of tests pending at discharge, please contact Dr. Casey Guerrero MD at Smoking is Dangerous to Your Health. Avoid second hand smoking
== END 2018-08-23 12:30 | disposition home or self-care (01) | DRG 885 ==
LOC: NEPD 19:52 → NEDA 08-16 10:22 → H260 08-16 14:47
PROVIDERS: ADMIT Psychiatry & Neurology Psychiatry; ATTEND Psychiatry & Neurology Psychiatry
CPT/HCPCS: 80048; 80061; 83036; 90791; 99285; L6380; Q0163